=== PATIENT | male | born 1955 | race Caucasian/White ===

== ENCOUNTER 2016-09-12 19:34 | Inpatient (IN) | payer OTHER, MEDICARE ==
[2016-09-12 19:34] VITALS: BMI 32.9
[2016-09-12 20:24] LABS: ADD MANUAL DIFF? NO
[2016-09-12 20:28] LABS: BASO # 0.02 K/mm3 (0.0-2.0); BASO % 0.4 % (0.0-3.0); EOS % 0.6 % (1.5-5.0); GRAN # 3.73 (1.4-6.5); GRAN % 73.5 % (50.0-68.0); HEMATOCRIT 36.1 % (42.0-52.0); LYMPH # 0.8 (1.2-3.4); MEAN CELL VOLUME 75.8 fL (80.0-105.0); MEAN CORPUSCULAR HEMOGLOBIN 25.2 pg (25.0-35.0); MEAN CORPUSCULAR HGB CONC 33.2 g/dl (31.0-37.0); MEAN PLATELET VOLUME 9.9 fl (7.0-11.0); MONO # 0.5 (0.1-0.6); MONO % 9.5 % (1.0-6.0); PLATELET COUNT 175 10^3/uL (120.0-450.0); RED CELL DISTRIBUTION WIDTH 14.6 % (11.5-14.5); WHITE BLOOD COUNT 5.1 10^3/ul (4.5-11.0)
[2016-09-12 20:37] LABS: ALB/GLOB RATIO 1.1 (1.1-1.8); ALKALINE PHOSPHATASE 84 U/L (38-133); ALT/SGPT 48 U/L (7-56); AST/SGOT 65 U/L (15-59); BILIRUBIN,TOTAL 1.2 mg/dL (0.2-1.3); BLOOD UREA NITROGEN 19 mg/dL (7-21); CALCIUM 8.9 mg/dL (8.4-10.5); CARBON DIOXIDE 28 mmol/L (21-33); CHLORIDE 98 mmol/L (98-107); GFR AFRICAN-AMERICAN > 60; GLUCOSE,RANDOM 183 mg/dL (70-110); POTASSIUM 3.6 mmol/L (3.6-5.0); SODIUM 134 mmol/L (132-148); TOTAL PROTEIN 7.1 g/dL (5.8-8.3)
[2016-09-12 20:48] LABS: TROPONIN I 0.04 ng/mL
--- NOTE | 2016-09-12 21:03 | ED PDOC ---
Arrival/HPI - General Chief Complaint: Pacemaker Problem Time Seen by Provider: 09/12/16 19:37 Historian: Patient - History of Present Illness Narrative History of Present Illness (Text): 09/12/16 20:00 Randy Abdullahi is a 61 year old male, whose past medical history includes CAD , hypertension, and pacemaker/defibrillator, who presents to the Emergency department complaining of low-grade fever. Patient states he had a low-grade fever today and notes earlier today he was shocked by his defibrillator tonight. Patient denies any chills, chest pain, shortness of breath, nausea, vomiting, diarrhea, urinary symptoms, back pain, neck pain, headache, dizziness , or any other complaints. PMD: Dr. Meggan Rosa Time/Duration: Other (today) Symptom Onset: Gradual Symptom Course: Unchanged Activities at Onset: Rest, Light Context: Home Past Medical History - Provider Review Nursing Documentation Reviewed: Yes - Cardiac Hx Cardiac Disorders: Yes Hx Hypertension: Yes Hx Pacemaker: Yes (defibrillator) - Pulmonary Hx Respiratory Disorders: No - Neurological Hx Neurological Disorder: No - HEENT Hx HEENT Disorder: No - Renal Hx Renal Disorder: No - Endocrine/Metabolic Hx Endocrine Disorders: Yes Hx Diabetes Mellitus Type 2: Yes - Hematological/Oncological Hx Blood Disorders: No - Integumentary Hx Dermatological Disorder: No - Musculoskeletal/Rheumatological Hx Musculoskeletal Disorders: No - Gastrointestinal Hx Gastrointestinal Disorders: No - Genitourinary/Gynecological Hx Genitourinary Disorders: No - Psychiatric Hx Emotional Abuse: No Hx Physical Abuse: No Hx Substance Use: No - Surgical History Hx Coronary Artery Bypass Graft: Yes (in 1995) Other/Comment: stents in legs bilaterally - Anesthesia Hx Anesthesia Reactions: No Hx Malignant Hyperthermia: No - Suicidal Assessment Feels Threatened In Home Enviroment: No Family/Social History - Physician Review Nursing Documentation Reviewed: Yes Family/Social History: No Known Family HX Smoking Status: Former Smoker Hx Alcohol Use: Yes (SOCIALLY) Hx Substance Use: No Allergies/Home Meds Allergies/Adverse Reactions: Allergies No Known Allergies Allergy (Verified 03/29/13 11:47) Home Medications: Home Meds Medication Instructions Recorded Confirmed Aspirin [Ecotrin] 81 mg PO DAILY 09/12/16 09/12/16 Carvedilol [Coreg CR] 40 mg PO DAILY 09/12/16 09/12/16 Cilostazol [Pletal] 100 mg PO BID 09/12/16 09/12/16 Enalapril Maleate [Vasotec] 5 mg PO DAILY 09/12/16 09/12/16 Ezetimibe/Simvastatin [Vytorin 10 1 tab PO DAILY 09/12/16 09/12/16 mg-20 mg] Furosemide [Lasix] 40 mg PO DAILY 09/12/16 09/12/16 Glimepiride [amaRYL] 2 mg PO DAILY 09/12/16 09/12/16 Sitagliptin Phos/Metformin HCl 1 each PO BID 09/12/16 09/12/16 [Janumet 50-1,000 mg Tablet] Spironolactone [Aldactone] 25 mg PO DAILY 09/12/16 09/12/16 Review of Systems - Physician Review All systems were reviewed & negative as marked: Yes - Review of Systems Constitutional: Fevers Eyes: Normal ENT: Normal Respiratory: Normal. absent: SOB, Cough Gastrointestinal: Normal. absent: Abdominal Pain, Diarrhea, Nausea, Vomiting Genitourinary Male: Normal. absent: Dysuria, Frequency, Hematuria, Urinary Output Changes Musculoskeletal: Normal. absent: Back Pain, Neck Pain Skin: Normal. absent: Rash Neurological: Normal. absent: Headache, Dizziness Endocrine: Normal Hemo/Lymphatic: Normal Psychiatric: Normal Physical Exam Vital Signs Reviewed: Yes Vital Signs Temp Pulse Resp BP Pulse Ox 09/12/16 22:02 99.2 F 85 14 113/73 97 09/12/16 19:41 100.4 F H 96 H 16 123/61 95 09/14/00 19:30 67 21 121/74 100 09/14/00 19:15 70 34 H 117/73 100 09/14/00 19:00 73 37 H 117/73 100 09/14/00 18:46 72 26 H 108/62 100 09/14/00 18:30 76 104/77 100 09/14/00 18:15 66 21 110/60 99 09/14/00 18:00 75 23 99/65 L 100 09/14/00 17:45 70 11 L 114/76 100 09/14/00 17:30 77 33 H 119/83 99 09/14/00 17:15 79 31 H 115/91 H 100 09/14/00 17:02 73 14 110/62 100 09/14/00 17:00 72 03/20/01 16:46 75 18 151/71 H 100 09/14/00 16:30 68 30 H 132/112 H 100 09/14/00 16:15 71 36 H 115/65 100 09/14/00 16:00 68 34 H 113/67 100 09/14/00 15:45 74 19 108/65 94 L 09/14/00 15:30 67 22 124/81 100 09/14/00 15:15 73 19 138/81 100 09/14/00 15:00 69 38 H 112/69 97 09/14/00 14:45 68 33 H 103/66 96 09/14/00 14:30 66 31 H 105/64 96 09/14/00 14:15 69 36 H 101/57 L 97 09/14/00 14:07 68 37 H 92/62 L 95 09/14/00 14:03 71 28 H 09/14/00 12:00 104/72 09/14/00 11:59 71 39 H 100 09/14/00 11:00 70 40 H 107/65 99 09/14/00 10:00 70 35 H 127/80 99 09/14/00 09:39 76 38 H 108/68 100 09/14/00 09:00 77 25 H 99 09/14/00 08:16 72 126/46 L 99 09/14/00 08:14 100 09/14/00 07:00 67 27 H 111/68 99 09/14/00 06:00 66 22 120/76 99 09/14/00 05:00 73 30 H 102/63 98 09/14/00 04:00 66 23 123/69 99 09/14/00 03:00 71 37 H 108/71 98 09/14/00 02:00 68 24 104/74 99 09/14/00 01:00 69 23 116/72 98 09/14/00 00:00 73 29 H 108/61 98 09/13/00 23:00 71 29 H 120/77 99 09/13/00 22:00 81 42 H 116/64 98 09/13/00 21:01 83 41 H 108/77 98 09/13/00 21:00 83 46 H 98 09/13/00 20:00 78 34 H 126/73 98 09/13/00 19:00 81 41 H 109/60 99 09/13/00 18:56 82 40 H 97 09/13/00 18:00 81 41 H 116/56 L 98 09/13/00 17:41 79 38 H 97 Temperature: Febrile Blood Pressure: Normal Pulse: Regular Respiratory Rate: Normal Appearance: Positive for: Well-Appearing, Non-Toxic, Comfortable Pain Distress: None Mental Status: Positive for: Alert and Oriented X 3 - Systems Exam Head: Present: Atraumatic, Normocephalic Pupils: Present: PERRL Extroacular Muscles: Present: EOMI Conjunctiva: Present: Normal Mouth: Present: Moist Mucous Membranes Neck: Present: Normal Range of Motion Respiratory/Chest: Present: Clear to Auscultation, Good Air Exchange. No: Respiratory Distress, Accessory Muscle Use Cardiovascular: Present: Regular Rate and Rhythm, Normal S1, S2. No: Murmurs Abdomen: Present: Normal Bowel Sounds. No: Tenderness, Distention, Peritoneal Signs Back: Present: Normal Inspection Upper Extremity: Present: Normal Inspection. No: Cyanosis, Edema Lower Extremity: Present: Normal Inspection. No: Edema Neurological: Present: GCS=15, CN II-XII Intact, Speech Normal Skin: Present: Warm, Dry, Normal Color. No: Rashes Psychiatric: Present: Alert, Oriented x 3, Normal Insight, Normal Concentration Medical Decision Making ED Course and Treatment: 09/12/16 20:00 Impression: 61 year old male complaining of low-grade fever. Pt notes he was shocked by his defibrillator today. Plan: -- EKG -- Chest X-ray -- Labs, troponin, VBG, blood cultures -- Urinalysis, urine cultures -- Reassess and disposition Progress Notes: Reviewed EKG, 100% paced rhythm at 94 bpm. No acute ischemia. 09/12/16 21:32 Reviewed radiology, Chest X-ray shows cardiomegaly. 09/12/16 22:[address] Rosa, who is aware and agrees with plan. Accepts pt in to his service. Pt will go to Telemetry observation for ventricular arrhythmia and chest pain. Pt is no acute distress. Discussed results and plan with pt, who is aware and verbalizes understanding. - Lab Interpretations Microbiology Results: Microbiology Results 09/12/16 21:00 Blood-Venous Blood Culture - Preliminary NO GROWTH AFTER 4 DAYS 09/12/16 20:00 Blood-Venous Blood Culture - Preliminary NO GROWTH AFTER 4 DAYS 09/13/16 18:20 Sputum Gram Stain - Final 09/13/16 18:20 Sputum Sputum Culture - Final NORMAL ORAL JEAN PIERRE 09/13/16 17:30 Naris MRSA Culture (Admit) - Final MRSA NOT DETECTED 09/12/16 20:25 Urine,Clean Catch Urine Culture - Final No Growth (<1,000 CFU/ML) Lab Results: 09/14/16 05:05 09/14/16 05:05 Lab Results 09/14/16 07:50: POC Glucose (mg/dL) 108 09/14/16 05:05: WBC 6.3 D, RBC 4.70, Hgb 11.5 L, Hct 35.9 L, MCV 76.4 L, MCH 24.5 L, MCHC 32.0, RDW 15.3 H, Plt Count 169, MPV 10.5, Gran % 51.4, Lymph % ( Auto) 34.1, Gentry % (Auto) 14.3 H, Eos % (Auto) 0.0 L, Baso % (Auto) 0.2, Gran # 3.24, Lymph # 2.2, Gentry # 0.9 H, Eos # 0.0, Baso # 0.01, Sodium 135, Potassium 4.2, Chloride 99, Carbon Dioxide 25, Anion Gap 15, BUN 13, Creatinine 0.7, Est GFR ( Amer) > 60, Est GFR (Non-Af Amer) > 60, Random Glucose 112 H, Calcium 8.5, Phosphorus 3.5, Magnesium 2.1, Iron 24 L, TIBC 269, % Saturation 9 L, Transferrin 199.45 L, Ferritin 184.0, Total Bilirubin 0.8, AST 38, ALT 34, Alkaline Phosphatase 66, Troponin I 0.04, Total Protein 6.9, Albumin 3.5, Globulin 3.4, Albumin/Globulin Ratio 1.0 L 09/13/16 23:49: Troponin I 0.04 09/13/16 21:25: POC Glucose (mg/dL) 163 H 09/13/16 17:35: Troponin I 0.04 D 09/13/16 16:19: POC Glucose (mg/dL) 92 09/13/16 13:00: Procalcitonin 0.16 L, HIV-1 Antibody TEST NOT PERFORMED, HIV-2 Antibody TEST NOT PERFORMED, HIV 1&2 Ag/Ab, 4th Gen Nonreactive 09/13/16 11:40: Magnesium 1.9, Troponin I 0.03 D 09/13/16 11:22: POC Glucose (mg/dL) 202 H 09/13/16 07:31: POC Glucose (mg/dL) 128 H 09/12/16 20:55: Influenza Typ A,B (EIA) Negative for flu a/b 09/12/16 20:25: Urine Color Yellow, Urine Appearance Sl cloudy, Urine pH 6.0, Ur Specific Hay[place] 1.025, Urine Protein 30 H, Urine Glucose (UA) 250 H, Urine Ketones Trace H, Urine Blood Trace-lysed H, Urine Nitrate Negative, Urine Bilirubin Small H, Urine Urobilinogen 4.0 H, Ur Leukocyte Esterase Negative, Urine RBC 1 - 3, Urine WBC 1 - 3, Ur Epithelial Cells 3 - 4, Urine Bacteria Few 09/12/16 20:10: WBC 5.1, RBC 4.76, Hgb 12.0 L, Hct 36.1 L, MCV 75.8 L, MCH 25.2 , MCHC 33.2, RDW 14.6 H, Plt Count 175, MPV 9.9, Gran % 73.5 H, Lymph % (Auto) 16.0 L, Gentry % (Auto) 9.5 H, Eos % (Auto) 0.6 L, Baso % (Auto) 0.4, Gran # 3.73 , Lymph # 0.8 L, Gentry # 0.5, Eos # 0.0, Baso # 0.02, pO2 68 H, VBG pH 7.40, VBG pCO2 42.0, VBG HCO3 26.0, VBG Total CO2 27.3, VBG O2 Sat (Calc) 96.2 H, VBG Base Excess 1.0, VBG Potassium 3.5 L, Glucose 189 H, Lactate 1.1, FiO2 21.0, Sodium 134.0, Potassium 3.6, Chloride 105.0, Carbon Dioxide 28, Anion Gap 12, BUN 19, Creatinine 0.8, Est GFR ( Amer) > 60, Est GFR (Non-Af Amer) > 60 , Random Glucose 183 H, Calcium 8.9, Total Bilirubin 1.2, AST 65 H, ALT 48, Alkaline Phosphatase 84, Troponin I 0.04, Total Protein 7.1, Albumin 3.7, Globulin 3.4, Albumin/Globulin Ratio 1.1, Venous Blood Potassium 3.5 L I have reviewed the lab results: Yes - RAD Interpretation Narrative RAD Interpretations (Text): Chest X-ray shows cardiomegaly. Radiology Orders: 09/12/16 20:04 CHEST PORTABLE [RAD] Stat 09/13/16 12:20 CHEST W/O CONTRAST [CT] Routine [employer]: ED Physician - EKG Interpretation EKG Interpretation (Text): EKG: Ordered, reviewed, and independently interpreted the EKG. Rate : 94 BPM Rhythm : 100% paced rhythm Interpretation : No acute ischemia. Interpreted by ED Physician: Yes Type: 12 lead EKG - Medication Orders Current Medication Orders: Acetaminophen (Tylenol 325mg Tab) 650 mg PO Q4H PRN PRN Reason: Fever >100.5 F Last Admin: 09/13/16 15:06 Dose: 650 MG MAR Pain/Vitals Document 09/13/16 15:06 [facility] (Rec: 09/13/16 15:07 [id number]) Vitals Temperature (97.6 F-99.6 F) 100.7 F Albuterol/Ipratropium (Duoneb 3 Mg/0.5 Mg (3 Ml) Ud) 3 ml IH [id number] [facility] Last Admin: 09/17/16 01:13 Dose: 3 ML Amiodarone HCl (Cordarone) 200 mg PO DAILY [facility] Aspirin (Ecotrin) 81 mg PO DAILY [facility] Last Admin: 09/16/16 09:32 Dose: 81 MG Atorvastatin Calcium (Lipitor) 10 mg PO DIN [facility] Last Admin: 09/16/16 17:02 Dose: 10 MG Digoxin (Lanoxin) 0.25 mg PO 1400 [facility] Last Admin: 09/16/16 16:53 Dose: Not Given Non-Admin Reason: Patient Refused [facility] Apical Pulse Rate Document 09/16/16 16:53 RT (Rec: 09/16/16 16:53 RT [id number]) Apical Pulse Rate Apical Pulse Rate (60-90 beats/min) 62 Doxycycline Hyclate (Doryx) 100 mg PO Q12 [facility] PRN Reason: Protocol Stop: 09/22/16 22:01 Last Admin: 09/16/16 23:14 Dose: 100 MG Furosemide (Lasix) 40 mg PO DAILY [facility] Last Admin: 09/16/16 09:33 Dose: 40 MG MAR Blood Pressure Document 09/16/16 09:33 RT (Rec: 09/16/16 09:33 RT [id number]) Blood Pressure Blood Pressure (100/60-150/90) 142/68 Guaifenesin (Robitussin) 100 mg PO Q4H PRN PRN Reason: Cough Last Admin: 09/16/16 23:14 Dose: 100 MG Home Med (Home Med) 1 unit PO DAILY [facility] Last Admin: 09/16/16 09:34 Dose: 1 UNIT Insulin Human Lispro (Humalog Low) 0 units SC [facility] PRN Reason: Protocol Last Admin: 09/16/16 23:12 Dose: Not Given Non-Admin Reason: Blood Sugar Parameter [facility] Blood Glucose Document 09/16/16 23:12 SBO (Rec: 09/16/16 23:12 SBO [id number]) Blood Glucose Finger Stick Blood Glucose (70-120) 200 Lisinopril (Zestril) 5 mg PO DAILY [facility] Last Admin: 09/16/16 09:33 Dose: 5 MG Magnesium Chloride (Slow-Mag) 64 mg PO DAILY [facility] Last Admin: 09/16/16 09:32 Dose: 64 MG Oseltamivir Phosphate (Tamiflu Cap) 75 mg PO BID [facility] PRN Reason: Protocol Stop: 09/18/16 18:01 Last Admin: 09/16/16 17:02 Dose: 75 MG Pantoprazole Sodium (Protonix Ec Tab) 20 mg PO 0730 [facility] Last Admin: 09/16/16 08:06 Dose: 20 MG Prednisone (Prednisone Tab) 20 mg PO DAILY [facility] Last Admin: 09/16/16 09:32 Dose: 20 MG Spironolactone (Aldactone) 25 mg PO DAILY [facility] Last Admin: 09/16/16 09:33 Dose: 25 MG Discontinued Medications Amiodarone HCl (Cordarone) 200 mg PO Q8 [facility] Last Admin: 09/14/16 07:42 Dose: 200 MG MAR Pulse and Blood Pressure Document 09/14/16 07:42 ORLIN (Rec: 09/14/16 07:42 ORLIN [id number]) Pulse Pulse Rate (60-90) 74 Blood Pressure Blood Pressure (100/60-150/90) 111/64 Amiodarone HCl (Cordarone) 400 mg PO TID JAMAAL Stop: 09/16/16 23:59 Last Admin: 09/16/16 17:02 Dose: 400 MG MAR Pulse and Blood Pressure Document 09/16/16 17:02 RT (Rec: 09/16/16 17:02 RT [id number]) Pulse Pulse Rate (60-90) 62 Bacitracin (Bacitracin) 1 ea TOP ONCE ONE Stop: 09/14/16 14:03 Last Admin: 09/14/16 17:49 Dose: 1 EA Bacitracin (Bacitracin) Confirm Administered Dose 1 ea .ROUTE .STK-MED ONE Stop: 09/14/16 16:55 Last Admin: 09/14/16 18:10 Dose: Clopidogrel Bisulfate (Plavix) 300 mg PO STAT STA Stop: 09/14/16 09:13 Last Admin: 09/14/16 09:44 Dose: 300 MG Diphenhydramine HCl (Benadryl) 25 mg PO STAT STA Stop: 09/12/16 23:36 Last Admin: 09/12/16 23:49 Dose: 25 MG Ezetimibe (Zetia) 10 mg PO DAILY JAMAAL Last Admin: 09/13/16 09:49 Dose: 10 MG Fentanyl (Fentanyl) Confirm Administered Dose 100 mcg .ROUTE .STK-MED ONE Stop: 09/14/16 12:30 Last Admin: 09/14/16 13:15 Dose: 50 MCG Comments: Dr. Kamran Nguyen adm. Fenatanyl 50 mcg IV @ 1315 MAR Pain Assessment Document 09/14/16 13:15 KPA (Rec: 09/14/16 13:40 KPA [id number]) Pain Reassessment Is this a pain reassessment? No Sleep Is patient sleeping during reassessment? No Presence of Pain Presence of Pain Yes Furosemide (Lasix) 40 mg IV ONCE ONE Stop: 09/14/16 16:01 Last Admin: 09/14/16 18:12 Dose: Furosemide (Lasix) 40 mg IV ONCE ONE Stop: 09/15/16 17:01 Last Admin: 09/15/16 18:05 Dose: 40 MG MAR Blood Pressure Document 09/15/16 18:05 SG (Rec: 09/15/16 18:06 SG [id number]) Blood Pressure Blood Pressure (100/60-150/90) 117/69 eMAR Start Stop Document 09/15/16 18:05 SG (Rec: 09/15/16 18:06 SG [id number]) Intravenous Solution Start Date 09/15/16 Start Time 18:06 End Date 09/15/16 End time 18:08 Total Infusion Time 2 Glimepiride (Amaryl) 2 mg PO DAILY [facility] Last Admin: 09/13/16 09:48 Dose: 2 MG Heparin Sodium (Porcine) (Heparin) 5,000 units SC Q12 JAMAAL Last Admin: 09/13/16 21:22 Dose: 5,000 UNITS Subcutaneous Administrations Document 09/13/16 21:22 LILIBETH (Rec: 09/13/16 21:22 LILIBETH [id number]) Injection Site MAR Injection Site Right Abdomen Charges for Administration # of Subcutaneous Administrations 1 Heparin Sodium (Porcine) (Heparin) Confirm Administered Dose 10,000 units .ROUTE .STK-MED ONE Stop: 09/14/16 12:29 Last Admin: 09/14/16 13:20 Dose: 2,500 UNITS Comments: Dr. Kamran Nguyen adm. Heparin 2500 units IA @ 1320 Home Med (Home Med) 1 unit PO ONCE ONE Stop: 09/13/16 14:31 Last Admin: 09/13/16 14:20 Dose: 1 UNIT Levofloxacin/Dextrose (Levaquin 500mg) 100 mls @ 100 mls/hr IVPB STAT STA Stop: 09/12/16 23:03 Last Admin: 09/12/16 22:29 Dose: 100 MLS/HR eMAR Start Stop Document 09/12/16 22:29 RD (Rec: 09/12/16 22:29 RD [id number]) Intravenous Solution Start Date 09/12/16 Start Time 22:29 End Date 09/12/16 End time 23:29 Total Infusion Time 60 Levofloxacin/Dextrose (Levaquin 750mg) 150 mls @ 100 mls/hr IVPB DAILY JAMAAL Last Admin: 09/13/16 09:50 Dose: 100 MLS/HR eMAR Start Stop Document 09/13/16 09:50 FJA (Rec: 09/13/16 09:50 FJA [id number]) Intravenous Solution Start Date 09/13/16 Start Time 09:50 End Date 09/13/16 End time 10:50 Total Infusion Time 60 Ceftriaxone Sodium (Rocephin 1 Gram Ivpb) 100 mls @ 100 mls/hr IVPB DAILY JAMAAL PRN Reason: Protocol Stop: 09/22/16 12:19 Last Admin: 09/16/16 09:35 Dose: 100 MLS/HR eMAR Start Stop Document 09/16/16 09:35 RT (Rec: 09/16/16 09:35 RT [id number]) Intravenous Solution Start Date 09/16/16 Start Time 09:35 End Date 09/16/16 End time 10:35 Total Infusion Time 60 Vancomycin HCl (Vancomycin 1gm) 250 mls @ 167 mls/hr IVPB Q12H JAMAAL PRN Reason: Protocol Stop: 09/22/16 12:31 Last Admin: 09/13/16 23:29 Dose: 167 MLS/HR eMAR Start Stop Document 09/13/16 23:29 LILIBETH (Rec: 09/13/16 23:30 LILIBETH [id number]) Intravenous Solution Start Date 09/13/16 Start Time 23:29 End Date 09/13/16 Magnesium Sulfate 2 gm/ Sodium (Chloride) 104 mls @ 102 mls/hr IVPB ONCE ONE Stop: 09/13/16 15:32 Last Admin: 09/13/16 16:42 Dose: 102 MLS/HR eMAR Start Stop Document 09/13/16 16:42 FJA (Rec: 09/13/16 16:43 FJA [id number]) Intravenous Solution Start Date 09/13/16 Start Time 16:43 End Date 09/13/16 End time 18:00 Total Infusion Time 77 Amiodarone HCl/Dextrose (Nexterone 360 Mg In D5w 200 Ml (Premix)) 200 mls @ 33.333 mls/hr IV .Q6H JAMAAL; 1 MG/MIN PRN Reason: Protocol Last Admin: 09/13/16 18:19 Dose: 33.333 MLS/HR MAR Pulse and Blood Pressure Document 09/13/16 18:19 RAMOM (Rec: 09/13/16 18:28 RAMOM [id number]) Pulse Pulse Rate (60-90) 83 Blood Pressure Blood Pressure (100/60-150/90) 116/56 eMAR Start Stop Document 09/13/16 18:19 RAMOM (Rec: 09/13/16 18:28 RAMOM [id number]) Intravenous Solution Start Date 09/13/16 Start Time 18:20 Amiodarone HCl/Dextrose (Nexterone 150 Mg In Dextrose 100 Ml (Premix)) 100 mls @ 600 mls/hr IVPB ONCE ONE PRN Reason: Protocol Stop: 09/13/16 18:01 Last Admin: 09/13/16 18:04 Dose: 600 MLS/HR eMAR Start Stop Document 09/13/16 18:04 RAMOM (Rec: 09/13/16 18:05 RAMOM [id number]) Intravenous Solution Start Date 09/13/16 Start Time 18:05 End Date 09/13/16 End time 18:15 Total Infusion Time 10 Amiodarone HCl/Dextrose (Nexterone 360 Mg In D5w 200 Ml (Premix)) 200 mls @ 16.667 mls/hr IV .Q12H JAMAAL; 0.5 MG/MIN PRN Reason: Protocol Stop: 09/14/16 18:00 Last Admin: 09/13/16 23:18 Dose: 16.667 MLS/HR MAR Pulse and Blood Pressure Document 09/13/16 23:18 LILIBETH (Rec: 09/13/16 23:23 LILIBETH [id number]) Pulse Pulse Rate (60-90) 77 Blood Pressure Blood Pressure (100/60-150/90) 120/77 eMAR Start Stop Document 09/13/16 23:18 LILIBETH (Rec: 09/13/16 23:23 LILIBETH [id number]) Intravenous Solution Start Date 09/13/16 Start Time 23:22 Nitroglycerin/Dextrose (Nitroglycerin 50 Mg/250 Ml D5w) Confirm Administered Dose 250 mls @ ud IV .STK-MED ONE Stop: 09/14/16 12:31 Last Admin: 09/14/16 13:20 Dose: 0.2 MG Comments: Dr. Patrick fermin Nitro 200 mcg IA @ 1320 eMAR Start Stop Document 09/14/16 13:20 KPA (Rec: 09/14/16 13:38 KPA [id number]) Intravenous Solution Start Date 09/14/16 Start Time 13:20 End Date 09/14/16 End time 13:20 Total Infusion Time 0 Heparin Sodium (Porcine) (Heparin 1000 Units/500 Ml Ns) Confirm Administered Dose 1,500 mls @ ud IV .STK-MED ONE Stop: 09/14/16 12:31 Sodium Chloride (Sodium Chloride 0.9%) 1,000 mls @ 50 mls/hr IV .Q20H JAMAAL Stop: 09/14/16 17:00 Milrinone Lactate/Dextrose (Primacor 20mg/100ml D5w) 100 mls @ 4.983 mls/hr IV .Q20H5M PRN; Protocol; 0.2 MCG/KG/MIN PRN Reason: TITRATE PER MD ORDER Stop: 09/16/16 07:00 Last Admin: 09/15/16 18:10 Dose: 4.9 MLS/HR MAR Vitals Document 09/15/16 18:10 SG (Rec: 09/15/16 18:11 SG [id number]) Measurements Blood Pressure (100/60-150/90) 117/69 Titration Intervention Document 09/15/16 18:10 SG (Rec: 09/15/16 18:11 [id number]) Titration Intake Container Volume 100 Titration Dosing Titration Dose 0.19 IV Rate 4.9 Intake/Decrease Decrease eMAR Start Stop Document 09/15/16 18:10 SG (Rec: 09/15/16 18:11 [id number]) Intravenous Solution Start Date 09/15/16 Start Time 18:10 Insulin Human Regular (Humulin R Low) 0 units SC ACHS [facility] PRN Reason: Protocol Last Admin: 09/13/16 16:42 Dose: Not Given Non-Admin Reason: Blood Sugar Parameter [facility] Blood Glucose Document 09/13/16 16:42 [facility] (Rec: 09/13/16 16:42 [id number]) Blood Glucose Finger Stick Blood Glucose (70-120) 92 Iodixanol (Visipaque 320 Mg/Ml 200 Ml) Confirm Administered Dose 200 ml IV .STK- MED ONE Stop: 09/14/16 12:31 Lidocaine HCl (Lidocaine 2% 20ml Vial) Confirm Administered Dose 20 ml .ROUTE .STK-MED ONE Stop: 09/14/16 12:29 Metformin HCl (Glucophage) 1,000 mg PO BID [facility] Last Admin: 09/13/16 09:49 Dose: 1,000 MG Midazolam HCl (Versed Inj) Confirm Administered Dose 2 mg .ROUTE .STK-MED ONE Stop: 09/14/16 12:29 Last Admin: 09/14/16 13:15 Dose: 1 MG Comments: Dr. Kamran Nguyen adm. Versed 1 mg IV @ 1315 Non-Formulary Medication (Carvedilol [Coreg Cr]) 40 mg PO DAILY [facility] Last Admin: 09/13/16 11:09 Dose: Ondansetron HCl (Zofran Inj) 4 mg IVP ONCE ONE Stop: 09/13/16 19:34 Last Admin: 09/13/16 20:37 Dose: 4 MG IVP Administration Document 09/13/16 20:37 LILIBETH (Rec: 09/13/16 20:38 LILIBETH [id number]) Charges for Administration # of IVP Administrations 1 Ondansetron HCl (Zofran Inj) 4 mg IVP ONCE ONE Stop: 09/14/16 23:10 Last Admin: 09/14/16 23:26 Dose: 4 MG IVP Administration Document 09/14/16 23:26 MS (Rec: 09/14/16 23:26 [id number] Charges for Administration # of IVP Administrations 1 Potassium Chloride (K-Dur 20 Meq Er Tab) 20 meq PO ONCE ONE Stop: 09/13/16 13:08 Last Admin: 09/13/16 13:30 Dose: 20 MEQ Potassium Chloride (K-Dur 20 Meq Er Tab) 20 meq PO ONCE ONE Stop: 09/15/16 17:01 Last Admin: 09/15/16 18:05 Dose: 20 MEQ Sitagliptin Phosphate (Januvia) 50 mg PO BID [facility] Last Admin: 09/13/16 09:49 Dose: 50 MG Verapamil HCl (Verapamil Inj) Confirm Administered Dose 5 mg IVP .STK-MED ONE Stop: 09/14/16 12:29 Last Admin: 09/14/16 13:20 Dose: 2.5 MG Comments: Dr. Kamran Nguyen adm. Verapamil 2.5 mg IA @ 1320 MAR Pulse and Blood Pressure Document 09/14/16 13:20 KPA (Rec: 09/14/16 13:39 KPA [id number]) Pulse Pulse Rate (60-90) 87 Blood Pressure Blood Pressure (100/60-150/90) 124/67 IVP Administration Document 09/14/16 13:20 KPA (Rec: 09/14/16 13:39 KPA [id number]) Charges for Administration # of IVP Administrations 1 - Scribe Statement The provider has reviewed the documentation as recorded by the Prateekibgeovanny Menjivar Provider Attestation: All medical record entries made by the Scribe were at my direction and personally dictated by me. I have reviewed the chart and agree that the record accurately reflects my personal performance of the history, physical exam, medical decision making, and the department course for this patient. I have also personally directed, reviewed, and agree with the discharge instructions and disposition. Disposition/Present on Arrival - Present on Arrival Any Indicators Present on Arrival: No History of DVT/PE: No History of Uncontrolled Diabetes: No Urinary Catheter: No History of Decub. Ulcer: No History Surgical Site Infection Following: None - Disposition Have Diagnosis and Disposition been Completed?: Yes Diagnosis: Cardiac arrhythmia Disposition: HOSPITALIZED Disposition Time: 22:05 Condition: FAIR
[2016-09-12 21:18] LABS: URINE BILIRUBIN SMALL (NEGATIVE); URINE BLOOD TRACE-LYSED (NEGATIVE); URINE GLUCOSE (UA) 250 mg/dL (NEGATIVE); URINE KETONE TRACE mg/dL (NEGATIVE); URINE LEUKOCYTE ESTERASE NEGATIVE Leu/uL (NEGATIVE); URINE PROTEIN 30 mg/dL (<30 mg/dL)
[2016-09-12 21:20] LABS: URINE COLOR YELLOW (YELLOW)
[2016-09-12 21:21] LABS: URINE APPEARANCE SL CLOUDY (CLEAR)
[2016-09-12 21:30] LABS: URINE BACTERIA FEW (NEG)
[2016-09-13] MEDS: Insulin Reg-LOW-Coverage SC SCH ×3 (08:15→16:42)
--- NOTE | 2016-09-13 09:17 | RAD ---
HISTORY: cp COMPARISON: Chest x-ray performed 09/12/16 TECHNIQUE: Chest, one view. FINDINGS: LUNGS: Central vascular and pulmonary venous congestion. Please note that chest x-ray has limited sensitivity for the detection of pulmonary masses. PLEURA: No significant pleural effusion identified. No definite pneumothorax . 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 Cardiomegaly. Left-sided AICD. OSSEOUS STRUCTURES: Osseous demineralization. Degenerative changes. 5 mm sclerotic focus within the proximal right humerus, possibly bone island. VISUALIZED UPPER ABDOMEN: Unremarkable. OTHER FINDINGS: None. IMPRESSION: Cardiomegaly. Central vascular and pulmonary venous congestion.
--- NOTE | 2016-09-13 09:56 | CARD ---
APPROVED REPORT EKG Measurement Heart [id number] <Conclusion> Electronic ventricular pacemaker: 100% V. paced, trackinf P waves
[2016-09-13] MEDS ORDERED: Non Formulary Medication (Enalapril Maleate [Vasotec] 5 MG) PO SCH (10:00)
[2016-09-13] MEDS ORDERED: Non Formulary Medication (Sitagliptin Phos/Metformin Hcl [Janumet 50-1,000 Mg Tablet] 1 EA PO SCH (10:00)
[2016-09-13] MEDS ORDERED: Non Formulary Medication (Ezetimibe/Simvastatin [Vytorin 10-20 Mg Tablet] 1 TAB) PO SCH (10:00)
[2016-09-13] MEDS ORDERED: Non Formulary Medication (Carvedilol [Coreg Cr] 40 MG) PO SCH ×2 (10:00)
[2016-09-13 12:08] LABS: MAGNESIUM 1.9 mg/dL (1.7-2.2)
[2016-09-13] MEDS ORDERED: CARVEDILOL 40 MG PO SCH (12:16)
[2016-09-13 12:19] LABS: TROPONIN I 0.03 ng/mL
--- NOTE | 2016-09-13 12:33 | HP ---
A 61-year-old male with history of noninsulin-dependent diabetes mellitus, hypertension, CAD , status post defibrillator pacemaker. The patient had begun coughing for 3 days with low-grade feve r and chills without sputum production. Last night, his defibrillator went off. He came to the [facility] and was found to have a possible pneumonia with a temperature of 102. Influenza A and B n egative. The patient was admitted with pneumonia and defibrillator discharge, rule out CAD. Again, this morning, the patient had another discharge of his defibrillator. PHYSICAL EXAMINATION: GENERAL: Awake, alert, and oriented x 3. NEUROLOGIC: Grossly intact. CHEST: Shows rhonchi and rales at both bases, particularly right lower lobe. HEART: Regular sinus rhythm. Systolic ejection murmur at the left sternal border, II/. ABDOMEN: Obese, but benign. EXTREMITIES: Without cyanosis, clubbing, or edema. NEUROLOGIC: Grossly intact. REVIEW OF SYSTEMS: The patient's 12-point review of systems is remarkable only for abdominal pain fr om coughing, cough, low-grade fever, chills, cold hands and feet. Denies chest pain, shortness of br eath, palpitations, irregular heartbeats, etc. The patient denies nausea, vomiting, diarrhea, and he also denies anxiety, depression, sleep disturbance. The patient also denies any polyuria, polydipsi a, hematuria, etc. SOCIAL HISTORY: Noncontributory. There is no smoking and no drinking, and he has no illicit drug us e. FAMILY HISTORY: Pertinent only for stroke in his mother, diabetes, and hypertension. His history of present illness dates to 3 days when this began with dry cough, and low-grade fever, a nd congestion. The patient denies any contact with any sick family members or outside members. IMPRESSION: A 61-year-old male with history of coronary artery disease, [id number] nt diabetes mellitus, hypertension, presenting with fever, chills, cough, no sputum production, and m ultiple discharges from his defibrillator. Rule out arrhythmia, rule out electrolyte imbalance, rule out defibrillator malfunction, rule out pneumonia and bronchitis. Praneeth Rosa MD cc: [id number] TT: 09/13/2016 12:32:47 jn
[2016-09-13] MEDS ORDERED: Potassium Chloride 20 mEq ER Tab PO ONE (13:07)
--- NOTE | 2016-09-13 13:34 | CON ---
DATE: 09/13/2016 The patient is in bed in room 270. The patient was seen earlier today. CHIEF COMPLAINT: Fever times 1-2 days' duration. HISTORY OF PRESENT ILLNESS: A 61-year-old male with coronary artery disease, hypertension, diabetes, has a pacemaker that was placed in 2014 and complaining of fever. He stated he did have chills. He had generalized aches and pains. No headaches. No nausea or vomiting. No urinary symptoms, no peter rrhea. He is having cough and the cough is nonproductive. No chest pain. PAST MEDICAL HISTORY: Significant for coronary artery disease, hypertension and diabetes mellitus an d peripheral arterial disease. PAST SURGICAL HISTORY: Significant for coronary artery bypass graft in 1995 at [facility]. The patient also with a pacemaker placement, he states in 2014 and this is his second pacem carolann. The first one was in 2004, which was not infected. It is just because of the pacemaker got ol d. The patient is a longtime ex-smoker. The patient also states bilateral leg stents. ALLERGIES: He has no known allergies. MEDICATIONS: Include metformin and glyburide and a statin, Vytorin, and enalapril and carvedilol, as pirin, spironolactone, Lasix. PHYSICAL EXAMINATION: GENERAL: The patient is in bed. VITAL SIGNS: Temperature of 101.4, heart rate is 64, it was up to 96 in the Emergency Room, respirat ory rate of 18, it was up to 20, blood pressure is 120/70. HEENT: Unremarkable. NECK: Supple. LUNGS: Decreased breath sounds. HEART: Normal S1, S2. ABDOMEN: Soft, nontender. LABORATORY EXAMINATION: Reveals a white count of 5.1, hemoglobin of 12, platelets of 175, 73% granul ocytosis. Chemistries reveals the BUN of 19, creatinine of 0.8. Urinalysis is noted, 1-3 WBCs. Inf luenza A is negative. Influenza B serology is negative. Chest x-ray is reported, pulmonary congestion and cardiomegaly. EKG is noted with a QTc of 540 and v entricular pacemaker 100%. ASSESSMENT AND PLAN: A 61-year-old male with a history of diabetes and hypertension and coronary art miguel angel disease and peripheral artery disease and stents in his lower extremities and coronary artery byp ass and pacemaker, which was placed in 2014. Currently, now with a temperature of 101, tachycardia a nd cough with an unremarkable chest x-ray. Systemic inflammatory response syndrome. Must rule out community-acquired pneumonia versus bacteremi a versus influenza, although the influenza serology is negative. We will discontinue the Levaquin du e to a prolonged QTc interval and use vancomycin and ceftriaxone and doxycycline. Order a stat proca lcitonin and will also order an HIV and a sputum culture, blood cultures. We will make further recom mendations upon availability of initial results and we will also obtain a CAT scan of the chest and w e will follow closely with you. Will also add Tamiflu. Tank Dias MD cc: [id number] TT: 09/13/2016 13:33:36 Confirmation # [id number] Dictation # [id number] en
[2016-09-13] MEDS: cefTRIAXone 1 gm 100 ML IVPB SCH (14:10)
[2016-09-13] MEDS: Vancomycin 1gm in NS 250ml 250 ML IVPB SCH ×2 (14:11→23:29)
[2016-09-13] MEDS ORDERED: COREG 40 MG PO ONE (14:30)
[2016-09-13] MEDS ORDERED: Magnesium Sulfate 2 GM in Sodium Chloride 0.9% 100 ML IVPB ONE (14:31)
--- NOTE | 2016-09-13 14:35 | CON ---
DATE: 09/13/2016 REASON FOR CONSULTATION: Ventricular tachycardia and dilated cardiomyopathy. The patient is a 61-year-old male who has a history of hypertension, diabetes mellitus, rg nary artery disease status post coronary artery bypass surgery in 1995 followed by coronary stenting. The most recent one was many years ago. The patient had an ICD placement in 2004 with replacement of a pulse generator in 2014. The patient has discharges from the ICD every few months. He has been experiencing low-grade fever and cough for the past 3 days and around 6:30 p.m. yesterday, he had di scharge from defibrillator and he decided to come to the hospital. Overnight, the patient had a run of sustained ventricular tachycardia and that was terminated by an ICD discharge. The patient was aw akened up from sleep with the ICD discharge. The patient denies any symptoms of dizziness prior to h is ICD discharge yesterday at home. The patient denies any syncope. SOCIAL HISTORY: The patient is a nonsmoker. MEDICATIONS: Aldactone 25 mg once a day, Amaryl 2 mg once a day, doxycycline 100 mg orally twice a d ay, aspirin 81 mg once a day, Glucophage 1 gram twice a day, Januvia 50 mg twice a day, Lipitor 10 mg once a day, Rocephin 1 gram intravenously daily, Tamiflu caplets 75 mg twice a day, vancomycin 1 gra m intravenously twice a day, Zestril 5 mg once a day, Zetia 10 mg once a day. REVIEW OF SYSTEMS: The patient did experience fever. No chills, no nausea or vomiting, no retroster nal chest pain and no leg swelling. PHYSICAL EXAMINATION: GENERAL: The patient is a middle-aged male who does not appear to be in any distress. VITAL SIGNS: Blood pressure 123/69, heart rate 80, temperature 101 degrees Fahrenheit, respiration 2 0. HEENT: Normocephalic. NECK: No JVD. CHEST: Clear. HEART: S1, S2 regular. ABDOMEN: Soft. EXTREMITIES: No edema. LABORATORIES: Hemoglobin and hematocrit 12 and 36.1, white count and platelet count are within patrick l limits. Today's SMA-7 is within normal limits except for glucose of 183. Magnesium is 1.9. Today 's potassium is borderline low normal at 3.6. Troponin 0.04 and 0.03. EKG revealed atrial sensed biventricular paced rhythm at a rate of 94. Chest x-ray revealed cardiome maddi, mild to moderate CHF, possible left pleural effusion, and ICD lead with dual chamber biventricu lar pacemaker leads. ASSESSMENT: 1. Recurrent discharge of the implantable cardioverter-defibrillator for most likely recurrent susta ined ventricular tachycardia. 2. Cardiomyopathy, status post implantable cardioverter-defibrillator and biventricular pacemaker pl acement. 3. Borderline hypokalemia and borderline hypomagnesemia. 4. Consider underlying pneumonia. RECOMMENDATIONS: Continue Aldactone at 25 mg once a day. Continue oral doxycycline 100 mg twice a d ay, IV Rocephin at 1 gram intravenously daily, aspirin 81 mg once a day, Lipitor at 10 mg once a day. I will start Slow-Mag at 1 tablet once a day. Administer 1 dose of K-Dur at 20 mEq orally today. Continue Zestril at 5 mg once a day and start Coreg at 3.125 mg orally twice a day. Jarvis Davison MD cc: [id number] TT: 09/13/2016 14:34:56 Confirmation # [id number] Dictation # [id number] en
[2016-09-13] MEDS: Magnesium Chloride 64 mg ER Tab PO SCH (15:03)
--- NOTE | 2016-09-13 15:03 | PN ---
DATE: 09/13/2016 The patient did experience defibrillation after sustained ventricular tachycardia around 2:00 p.m. T he patient does not recall experiencing dizziness or palpitation. The patient was noted to be on Cor eg SR 40 mg once a day from home. He has not received his pill today. The patient will receive the Coreg 40 mg now and will be started on magnesium sulfate 2 mg intravenously now. Will be transferred to the ICU and will be started on amiodarone infusion. Electrophysiology consult from Dr. Rolando moreira s been requested and the case will be discussed with the hem marker. The case was already d iscussed with the clamshell operator, Dr. Oshea. Jarvis Davison MD cc: [id number] TT: 09/13/2016 15:02:39 Confirmation # [id number] Dictation # [id number] viri
[2016-09-13] MEDS ORDERED: Amiodarone 360 mg/D5W 200 ml 200 ML IV SCH ×2 (16:15→19:15)
[2016-09-13] MEDS ORDERED: Amiodarone 150 mg/D5W 100 ml 100 ML IVPB ONE (17:52)
--- NOTE | 2016-09-13 17:52 | CP.CCUPN ---
<Michael Arredondoa - Last Filed: 09/13/16 17:55> CCU Subjective - Physician Review Events Since Last Encounter (Free Text): 09/13/16 17:55 C/S: ICU eval HPI: 61 year old male with extensive cardiac history admitted with 3 day h/o nonproductive cough, chills and low-grade fever admitted with possible PNA/ bronchitis on antibiotic therapy s/p ICD shock at home on Wednesday night. Patient had 3 more episodes of his ICD firing while int hospital, once waking the patient up from sleep. Patient denies any CP, dizziness, diaphoresis, headache, fatigue, syncope or any discomfort prior to ICD firing. Only admits to a mild headache and some abdominal pain with coughing. Otherwise denies new rashes, vision changes, chills, muscle aches, palpitations. PMHx: NIDDM2, HTN, CAD, PVD PSHx: CABG 1995, PPM 2004, ICD 2014, BL leg stents, coronary stents FamilyHx: Mom had CVA, DM, HTN. Dad had TX. Bro had HLD, HTN. SocialHx: Former smoker, 1ppd x 17 years, quit in 1994. Social EtOH in his youth. Denies h/o drug use Allergies: NKDA HomeMeds: Spirinolactone, Coreg, ASA, Janumet, Lasix, Pletal, Vasotec, Vytorin, Glimepiride 09/13/16 18:22 Critical Care Time Spent (in minutes): 60 CCU Objective - Vital Signs / Intake & Output Vital Signs (Last 4 hours): Vital Signs Temp Pulse Resp 09/13/16 17:00 99 F 70 18 09/13/16 15:06 100.7 F H 09/13/16 14:00 81 Intake and Output (Last 8hrs): Intake & Output 09/13/16 09/13/16 09/13/16 06:59 14:59 22:59 Other: Voiding Method Urinal - Physical Exam Head: Positive for: Atraumatic, Normocephalic Pupils: Positive for: PERRL Extroacular Muscles: Positive for: EOMI Conjunctiva: Positive for: Normal Mouth: Positive for: Moist Mucous Membranes Neck: Positive for: Normal Range of Motion Respiratory/Chest: Positive for: Clear to Auscultation, Good Air Exchange. Negative for: Respiratory Distress, Accessory Muscle Use Cardiovascular: Positive for: Regular Rate and Rhythm, Normal S1, S2. Negative for: Murmurs Abdomen: Positive for: Normal Bowel Sounds. Negative for: Tenderness, Distention, Peritoneal Signs Back: Positive for: Normal Inspection Upper Extremity: Positive for: Normal Inspection. Negative for: Cyanosis, Edema Lower Extremity: Positive for: Normal Inspection. Negative for: Edema Neurological: Positive for: GCS=15, CN II-XII Intact, Speech Normal Skin: Positive for: Warm, Dry, Normal Color. Negative for: Rashes Psychiatric: Positive for: Alert, Oriented x 3, Normal Insight, Normal Concentration - Medications Active Medications: Active Medications Generic Name Dose Route Start Last Admin Trade Name Freq PRN Reason Stop Dose Admin Acetaminophen 650 mg 09/12/16 22:08 09/13/16 15:06 Tylenol 325mg Tab PO 650 mg Q4H PRN Administration Fever >100.5 F Amiodarone HCl 200 mg 09/14/16 06:00 Cordarone PO Q8 JAMAAL Aspirin 81 mg 09/13/16 10:00 09/13/16 09:48 Ecotrin PO 81 mg DAILY JAMAAL Administration Atorvastatin Calcium 10 mg 09/13/16 17:00 09/13/16 16:42 Lipitor PO 10 mg DIN JAMAAL Administration Doxycycline Hyclate 100 mg 09/13/16 22:00 Doryx PO 09/22/16 22:01 Q12 JAMAAL Protocol Home Med 1 unit 09/14/16 10:00 Home Med PO DAILY JAMAAL Ceftriaxone Sodium 100 mls @ 100 mls/hr 09/13/16 12:18 09/13/16 14:10 Rocephin 1 Gram Ivpb IVPB 09/22/16 12:19 100 mls/hr DAILY JAMAAL Administration Protocol Vancomycin HCl 250 mls @ 167 mls/hr 09/13/16 12:30 09/13/16 14:11 Vancomycin 1gm IVPB 09/22/16 12:31 167 mls/hr Q12H JAMAAL Administration Protocol Amiodarone HCl/Dextrose 200 mls @ 33.333 mls/hr 09/13/16 16:15 Nexterone 360 Mg In D5w 200 Ml (Premix) IV .Q6H JAMAAL Protocol 1 MG/MIN Insulin Human Lispro 0 units 09/13/16 22:00 Humalog Low SC ACHS JAMAAL Protocol Insulin Human Regular 0 units 09/13/16 07:30 09/13/16 16:42 Humulin R Low SC Not Given [facility] Protocol Lisinopril 5 mg 09/13/16 10:00 09/13/16 09:49 Zestril PO 5 mg DAILY JAMAAL Administration Magnesium Chloride 64 mg 09/13/16 13:15 09/13/16 15:03 Slow-Mag PO 64 mg DAILY [facility] Administration Oseltamivir Phosphate 75 mg 09/13/16 18:00 Tamiflu Cap PO 09/18/16 18:01 BID [facility] Protocol Spironolactone 25 mg 09/13/16 10:00 09/13/16 09:49 Aldactone PO 25 mg DAILY [facility] Administration - Patient Studies Lab Studies: Lab Studies 09/13/16 09/13/16 09/13/16 Range/Units 16:19 11:40 11:22 POC Glucose (mg/dL) 92 202 H (65-110) mg/dL Magnesium 1.9 (1.7-2.2) mg/dL Troponin I 0.03 D ng/mL 09/13/16 Range/Units 07:31 POC Glucose (mg/dL) 128 H (65-110) mg/dL Magnesium (1.7-2.2) mg/dL Troponin I ng/mL Laboratory Results - last 24 hr 09/13/16 09/13/16 09/13/16 07:31 11:22 11:40 POC Glucose (mg/dL) 128 H 202 H Magnesium 1.9 Troponin I 0.03 D 09/13/16 16:19 POC Glucose (mg/dL) 92 Magnesium Troponin I Fingerstick Blood Sugar Results: 92 Review of Systems - Constitutional Constitutional: absent: Fever, Chills (resolved), Sweats - EENT Eyes: absent: Change in Vision, Diplopia Ears: absent: Dizziness - Cardiovascular Cardiovascular: absent: Chest Pain, Diaphoresis, Dyspnea, Orthopnea, Palpitations, Rapid Heart Rate, Syncope - Respiratory Respiratory: absent: Cough, Dyspnea, Pain on Inspiration, Chest Congestion - Gastrointestinal Gastrointestinal: absent: Abdominal Pain, Diarrhea, Nausea, Vomiting - Genitourinary Genitourinary: absent: Dysuria, Flank Pain - Musculoskeletal Musculoskeletal: absent: Back Pain, Numbness - Integumentary Integumentary: absent: Rash - Neurological Neurological: Headaches (mild). absent: Abnormal Speech, Confusion, Convulsions , Dizziness, Focal Weakness, Syncope, Weakness, Other Visual Disturbances - Psychiatric Psychiatric: absent: Confusion - Endocrine Endocrine: absent: Cold Intolorance, Excessive Sweating, Fatigue, Flushing, Heat Intolorance, Palpitations - Hematologic/Lymphatic Hematologic: absent: Easy Bleeding, Easy Bruising, Lymphadenopathy Critical Care Progress Note - Ventilator Checklist PUD Prophalyxis: Yes DVT Prophylaxis: Yes - Nutrition Nutrition: Nutrition Category Date Time Status Consistent Carbohydrate [DIET] Diets 09/13/16 Breakfast Ordered Assessment/Plan - Assessment and Plan (Free Text) Assessment: 61 yo M w h/o NIDDM2, HTN, CAD, PVD s/p CABG, ICD, coronary stents admitted with possible PNA/bronchitis now s/p 4 ICD discharges transferred to ICU on amiodarone Plan: Neuro: AAOx3, NAD. No current issues CV: s/p 4 ICD discharges - ICD malfunction vs infection vs electrolyte abnormalities vs TX vs Heart failure vs cardiomyopathy vs structural heart disease vs myocarditis vs pericarditis Obtain 2D ECHO to assess LVEF and wall motion function to evaluate for possible cause of V tach EP consult pending - ICD interrogation Patient receiving K, Mg, Ca, Cl supplementation. Recheck AM labs. Maintain K> 4, Mg>2 Trend troponins Continue Lipitor, Lisinopril, Spironolactone, ASA Amiodarone drip with loading dose Continuous telemetry monitoring Possible cath as per cardiology Pulm: Possible bronchitis/PNA. Cont abx as per hospitalist/ID GI: GI ppx Renal: No active issues. GFR >60. Cr 0.8. Continue to monitor Endo: Hold all oral anti-hyperglycemics. Lispro Low SSI. Continue Accuchecks ACHS Maintain euglycemia 140-180 Heme: Mild microcytic anemia. Will send iron panel ID: Possible bronchitis/PNA. Continue abx as per ID - Shalonda Lee, Vanc as per ID Influenza swab negative for flu Sputum and blood cultures pending Procalcitonin pending DVT/GI ppx: SQH, Protonix, DM diet Dispo: Transfer to ICU - Date & Time Date: 09/13/16 Time: 18:19 <Dorie PADRON,Samantha H - Last Filed: 09/13/16 18:48> CCU Objective - Vital Signs / Intake & Output Vital Signs (Last 4 hours): Vital Signs Temp Pulse Resp BP 09/13/16 18:19 83 116/56 L 09/13/16 17:00 99 F 70 18 09/13/16 15:06 100.7 F H Intake and Output (Last 8hrs): Intake & Output 09/13/16 09/13/16 09/13/16 06:59 14:59 22:59 Other: Voiding Method Urinal - Medications Active Medications: Active Medications Generic Name Dose Route Start Last Admin Trade Name Freq PRN Reason Stop Dose Admin Acetaminophen 650 mg 09/12/16 22:08 09/13/16 15:06 Tylenol 325mg Tab PO 650 mg Q4H PRN Administration Fever >100.5 F Amiodarone HCl 200 mg 09/14/16 06:00 Cordarone PO Q8 JAMAAL Aspirin 81 mg 09/13/16 10:00 09/13/16 09:48 Ecotrin PO 81 mg DAILY JAMAAL Administration Atorvastatin Calcium 10 mg 09/13/16 17:00 09/13/16 16:42 Lipitor PO 10 mg DIN JAMAAL Administration Doxycycline Hyclate 100 mg 09/13/16 22:00 Doryx PO 09/22/16 22:01 Q12 JAMAAL Protocol Heparin Sodium (Porcine) 5,000 units 09/13/16 22:00 Heparin SC Q12 JAMAAL Home Med 1 unit 09/14/16 10:00 Home Med PO DAILY JAMAAL Ceftriaxone Sodium 100 mls @ 100 mls/hr 09/13/16 12:18 09/13/16 14:10 Rocephin 1 Gram Ivpb IVPB 09/22/16 12:19 100 mls/hr DAILY JAMAAL Administration Protocol Vancomycin HCl 250 mls @ 167 mls/hr 09/13/16 12:30 09/13/16 14:11 Vancomycin 1gm IVPB 09/22/16 12:31 167 mls/hr Q12H JAMAAL Administration Protocol Amiodarone HCl/Dextrose 200 mls @ 33.333 mls/hr 09/13/16 16:15 09/13/16 18:19 Nexterone 360 Mg In D5w 200 Ml (Premix) IV 33.333 mls/hr .Q6H JAMAAL Administration Protocol 1 MG/MIN Insulin Human Lispro 0 units 09/13/16 22:00 Humalog Low SC ACHS JAMAAL Protocol Lisinopril 5 mg 09/13/16 10:00 09/13/16 09:49 Zestril PO 5 mg DAILY JAMAAL Administration Magnesium Chloride 64 mg 09/13/16 13:15 09/13/16 15:03 Slow-Mag PO 64 mg DAILY JAMAAL Administration Oseltamivir Phosphate 75 mg 09/13/16 18:00 09/13/16 18:31 Tamiflu Cap PO 09/18/16 18:01 75 mg BID JAMAAL Administration Protocol Pantoprazole Sodium 20 mg 09/14/16 07:30 [place] 0730 JAMAAL Spironolactone 25 mg 09/13/16 10:00 09/13/16 09:49 Aldactone PO 25 mg DAILY JAMAAL Administration - Patient Studies Lab Studies: Lab Studies 09/13/16 09/13/16 09/13/16 Range/Units 17:35 16:19 11:40 POC Glucose (mg/dL) 92 (65-110) mg/dL Magnesium 1.9 (1.7-2.2) mg/dL Troponin I 0.04 D 0.03 D ng/mL 09/13/16 09/13/16 Range/Units 11:22 07:31 POC Glucose (mg/dL) 202 H 128 H (65-110) mg/dL Magnesium (1.7-2.2) mg/dL Troponin I ng/mL Laboratory Results - last 24 hr 09/13/16 09/13/16 09/13/16 07:31 11:22 11:40 POC Glucose (mg/dL) 128 H 202 H Magnesium 1.9 Troponin I 0.03 D 09/13/16 09/13/16 16:19 17:35 POC Glucose (mg/dL) 92 Magnesium Troponin I 0.04 D Critical Care Progress Note - Nutrition Nutrition: Nutrition Category Date Time Status Consistent Carbohydrate [DIET] Diets 09/13/16 Breakfast Ordered Attending/Attestation - Attestation I have personally seen and examined this patient.: Yes I have fully participated in the care of the patient.: Yes I have reviewed all pertinent clinical information: Yes Notes (Text): 09/13/16 18:44 61 y/o M admitted to the MICU secondary to v-tach noted on telemetry Defibrilator present but on telemetry strip, its noted that multiple beats polymorphic/ monomorphic were paced and other were not. Have to r/o infection , blood cx, sputum cx etc. Empiric abx , no fluroquinolones Monitor heart function , ECHO ordered to check for any WMA . Possible myocarditis , URI, FLu neg. ough suppressants at night. Amiodarone ggt started x 6 hrs + 18 hrs. EP consult placed for device interrogation . Could be related to new coronary lesion, trend troponins, CHF on cxr, no obvious infiltrate, continue spironolactone, b blockers, asprin . KELSEA i? Cardiology following Dr Ramos cc time 65 min
[2016-09-13] MEDS: guaiFENesin 100 mg/5 ml Syrup UD PO PRN (21:27)
[2016-09-13] MEDS: Insulin Lispro (humaLOG) LOW Coverage SC SCH (23:25)
[2016-09-14 05:21] LABS: BASO # 0.01 K/mm3 (0.0-2.0); BASO % 0.2 % (0.0-3.0); GRAN # 3.24 (1.4-6.5); GRAN % 51.4 % (50.0-68.0); HEMATOCRIT 35.9 % (42.0-52.0); LYMPH # 2.2 (1.2-3.4); LYMPH % 34.1 % (22.0-35.0); MEAN CELL VOLUME 76.4 fL (80.0-105.0); MEAN CORPUSCULAR HEMOGLOBIN 24.5 pg (25.0-35.0); MEAN PLATELET VOLUME 10.5 fl (7.0-11.0); MONO # 0.9 (0.1-0.6); MONO % 14.3 % (1.0-6.0); PLATELET COUNT 169 10^3/uL (120.0-450.0); RED CELL DISTRIBUTION WIDTH 15.3 % (11.5-14.5); WHITE BLOOD COUNT 6.3 10^3/ul (4.5-11.0)
[2016-09-14 05:39] LABS: ALKALINE PHOSPHATASE 66 U/L (38-133); ALT/SGPT 34 U/L (7-56); AST/SGOT 38 U/L (15-59); BILIRUBIN,TOTAL 0.8 mg/dL (0.2-1.3); BLOOD UREA NITROGEN 13 mg/dL (7-21); CALCIUM 8.5 mg/dL (8.4-10.5); CARBON DIOXIDE 25 mmol/L (21-33); CHLORIDE 99 mmol/L (95-110); GFR AFRICAN-AMERICAN > 60; GLUCOSE,RANDOM 112 mg/dL (70-110); MAGNESIUM 2.1 mg/dL (1.7-2.2); PHOSPHOROUS 3.5 mg/dL (2.5-4.5); POTASSIUM 4.2 mmol/L (3.6-5.0); SODIUM 135 mmol/L (132-148); TOTAL PROTEIN 6.9 g/dL (5.8-8.3)
[2016-09-14 05:47] LABS: IRON 24 ug/dL (45-180); TROPONIN I 0.04 ng/mL
[2016-09-14 06:42] LABS: ADD MANUAL DIFF? NO
--- NOTE | 2016-09-14 07:36 | CP.CCUPN ---
<Miriam Arredondo - Last Filed: 09/14/16 16:16> CCU Subjective - Physician Review Events Since Last Encounter (Free Text): 09/14/16 11:16 Patient seen and examined bedside. No acute events overnight. Patient states his cough is significantly improved with Robitussin. Denies CP, SOB, abd pain improved since he is not coughing as much, denies fevers, chills, n/v/d. Going for cardiac cath this AM. 09/14/16 16:22 S/p cardiac cath. Spoke with basketball coach - No critical lesions, however EF 15% . Patient to be given 40mg IV lasix and started on primacor as per cardiology. Can be transferred to telemetry. 09/14/16 16:27 Critical Care Time Spent (in minutes): 30 CCU Objective - Vital Signs / Intake & Output Vital Signs (Last 4 hours): Vital Signs Temp Pulse Resp BP Pulse Ox 09/14/16 04:00 99.3 F 70 24 123/69 99 Intake and Output (Last 8hrs): Intake & Output 09/13/16 09/14/16 09/14/16 22:59 06:59 14:59 Intake Total 580 499 Output Total 450 200 Balance 130 299 Weight 183 lb 1.6 oz Intake: IV 100 299 Right Forearm 100 299 Oral 480 200 Output: Urine 450 200 Urine, Voided 450 200 Other: Voiding Method Urinal Urinal # Voids Urine, Voided 3 # Bowel Movements 0 - Physical Exam Head: Positive for: Atraumatic, Normocephalic Pupils: Positive for: PERRL Extroacular Muscles: Positive for: EOMI Conjunctiva: Positive for: Normal Mouth: Positive for: Moist Mucous Membranes Neck: Positive for: Normal Range of Motion Respiratory/Chest: Positive for: Clear to Auscultation, Good Air Exchange. Negative for: Respiratory Distress, Accessory Muscle Use Cardiovascular: Positive for: Regular Rate and Rhythm, Normal S1, S2. Negative for: Murmurs Abdomen: Positive for: Normal Bowel Sounds. Negative for: Tenderness, Distention, Peritoneal Signs Back: Positive for: Normal Inspection Upper Extremity: Positive for: Normal Inspection. Negative for: Cyanosis, Edema Lower Extremity: Positive for: Normal Inspection. Negative for: Edema Neurological: Positive for: GCS=15, CN II-XII Intact, Speech Normal Skin: Positive for: Warm, Dry, Normal Color. Negative for: Rashes Psychiatric: Positive for: Alert, Oriented x 3, Normal Insight, Normal Concentration - Medications Active Medications: Active Medications Generic Name Dose Route Start Last Admin Trade Name Freq PRN Reason Stop Dose Admin Acetaminophen 650 mg 09/12/16 22:08 09/13/16 15:06 Tylenol 325mg Tab PO 650 mg Q4H PRN Administration Fever >100.5 F Amiodarone HCl 200 mg 09/14/16 06:00 Cordarone PO Q8 JAMAAL Aspirin 81 mg 09/13/16 10:00 09/13/16 09:48 Ecotrin PO 81 mg DAILY JAMAAL Administration Atorvastatin Calcium 10 mg 09/13/16 17:00 09/13/16 16:42 Lipitor PO 10 mg DIN JAMAAL Administration Doxycycline Hyclate 100 mg 09/13/16 22:00 09/13/16 21:21 Doryx PO 09/22/16 22:01 100 mg Q12 JAMAAL Administration Protocol Guaifenesin 100 mg 09/13/16 20:57 09/13/16 21:27 Robitussin PO 100 mg Q4H PRN Administration Cough Heparin Sodium (Porcine) 5,000 units 09/13/16 22:00 09/13/16 21:22 Heparin SC 5,000 units Q12 JAMAAL Administration Home Med 1 unit 09/14/16 10:00 Home Med PO DAILY JAMAAL Ceftriaxone Sodium 100 mls @ 100 mls/hr 09/13/16 12:18 09/13/16 14:10 Rocephin 1 Gram Ivpb IVPB 09/22/16 12:19 100 mls/hr DAILY JAMAAL Administration Protocol Vancomycin HCl 250 mls @ 167 mls/hr 09/13/16 12:30 09/13/16 23:29 Vancomycin 1gm IVPB 09/22/16 12:31 167 mls/hr Q12H JAMAAL Administration Protocol Amiodarone HCl/Dextrose 200 mls @ 16.667 mls/hr 09/13/16 19:15 09/13/16 23:18 Nexterone 360 Mg In D5w 200 Ml (Premix) IV 16.667 mls/hr .Q12H JAMAAL Administration Protocol 0.5 MG/MIN Insulin Human Lispro 0 units 09/13/16 22:00 09/13/16 23:25 Humalog Low SC Not Given ACHS JAMAAL Protocol Lisinopril 5 mg 09/13/16 10:00 09/13/16 09:49 Zestril PO 5 mg DAILY JAMAAL Administration Magnesium Chloride 64 mg 09/13/16 13:15 09/13/16 15:03 Slow-Mag PO 64 mg DAILY JAMAAL Administration Oseltamivir Phosphate 75 mg 09/13/16 18:00 09/13/16 18:31 Tamiflu Cap PO 09/18/16 18:01 75 mg BID JAMAAL Administration Protocol Pantoprazole Sodium 20 mg 09/14/16 07:30 Protonix [place] 0730 [facility] Spironolactone 25 mg 09/13/16 10:00 09/13/16 09:49 Aldactone PO 25 mg DAILY JAMAAL Administration - Patient Studies Lab Studies: Microbiology Studies 09/13/16 18:20 Gram Stain - Final Sputum Lab Studies 09/14/16 09/13/16 09/13/16 Range/Units 05:05 23:49 17:35 WBC 6.3 D (4.5-11.0) 10^3/ul RBC 4.70 (3.5-6.1) 10^6/uL Hgb 11.5 L (14.0-18.0) gm/dL Hct 35.9 L (42.0-52.0) % MCV 76.4 L (80.0-105.0) fL MCH 24.5 L (25.0-35.0) pg MCHC 32.0 (31.0-37.0) g/dl RDW 15.3 H (11.5-14.5) % Plt Count 169 (120.0-450.0) 10^3/uL MPV 10.5 (7.0-11.0) fl Gran % 51.4 (50.0-68.0) % Lymph % (Auto) 34.1 (22.0-35.0) % Bureau % (Auto) 14.3 H (1.0-6.0) % Eos % (Auto) 0.0 L (1.5-5.0) % Baso % (Auto) 0.2 (0.0-3.0) % Gran # 3.24 (1.4-6.5) Lymph # 2.2 (1.2-3.4) Bureau # 0.9 H (0.1-0.6) Eos # 0.0 (0.0-0.7) Baso # 0.01 (0.0-2.0) K/mm3 Sodium 135 (132-148) mmol/L Potassium 4.2 (3.6-5.0) mmol/L Chloride 99 (95-110) mmol/L Carbon Dioxide 25 (21-33) mmol/L Anion Gap 15 (10-20) BUN 13 (7-21) mg/dL Creatinine 0.7 (0.5-1.4) mg/dL Est GFR ( Amer) > 60 Est GFR (Non-Af Amer) > 60 POC Glucose (mg/dL) (65-110) mg/dL Random Glucose 112 H (70-110) mg/dL Calcium 8.5 (8.4-10.5) mg/dL Phosphorus 3.5 (2.5-4.5) mg/dL Magnesium 2.1 (1.7-2.2) mg/dL Iron 24 L (45-180) ug/dL TIBC 269 (261-462) ug/dL % Saturation 9 L (20-55) % Total Bilirubin 0.8 (0.2-1.3) mg/dL AST 38 (15-59) U/L ALT 34 (7-56) U/L Alkaline Phosphatase 66 (38-133) U/L Troponin I 0.04 0.04 0.04 D ng/mL Total Protein 6.9 (5.8-8.3) g/dL Albumin 3.5 (3.0-4.8) g/dL Globulin 3.4 gm/dL Albumin/Globulin Ratio 1.0 L (1.1-1.8) Procalcitonin (0.19-0.49) NG/ML 09/13/16 09/13/16 09/13/16 Range/Units 16:19 13:00 11:40 WBC (4.5-11.0) 10^3/ul RBC (3.5-6.1) 10^6/uL Hgb (14.0-18.0) gm/dL Hct (42.0-52.0) % MCV (80.0-105.0) fL MCH (25.0-35.0) pg MCHC (31.0-37.0) g/dl RDW (11.5-14.5) % Plt Count (120.0-450.0) 10^3/uL MPV (7.0-11.0) fl Gran % (50.0-68.0) % Lymph % (Auto) (22.0-35.0) % Bureau % (Auto) (1.0-6.0) % Eos % (Auto) (1.5-5.0) % Baso % (Auto) (0.0-3.0) % Gran # (1.4-6.5) Lymph # (1.2-3.4) Bureau # (0.1-0.6) Eos # (0.0-0.7) Baso # (0.0-2.0) K/mm3 Sodium (132-148) mmol/L Potassium (3.6-5.0) mmol/L Chloride (95-110) mmol/L Carbon Dioxide (21-33) mmol/L Anion Gap (10-20) BUN (7-21) mg/dL Creatinine (0.5-1.4) mg/dL Est GFR ( Amer) Est GFR (Non-Af Amer) POC Glucose (mg/dL) 92 (65-110) mg/dL Random Glucose (70-110) mg/dL Calcium (8.4-10.5) mg/dL Phosphorus (2.5-4.5) mg/dL Magnesium 1.9 (1.7-2.2) mg/dL Iron (45-180) ug/dL TIBC (261-462) ug/dL % Saturation (20-55) % Total Bilirubin (0.2-1.3) mg/dL AST (15-59) U/L ALT (7-56) U/L Alkaline Phosphatase (38-133) U/L Troponin I 0.03 D ng/mL Total Protein (5.8-8.3) g/dL Albumin (3.0-4.8) g/dL Globulin gm/dL Albumin/Globulin Ratio (1.1-1.8) Procalcitonin 0.16 L (0.19-0.49) NG/ML 09/13/16 09/13/16 Range/Units 11:22 07:31 WBC (4.5-11.0) 10^3/ul RBC (3.5-6.1) 10^6/uL Hgb (14.0-18.0) gm/dL Hct (42.0-52.0) % MCV (80.0-105.0) fL MCH (25.0-35.0) pg MCHC (31.0-37.0) g/dl RDW (11.5-14.5) % Plt Count (120.0-450.0) 10^3/uL MPV (7.0-11.0) fl Gran % (50.0-68.0) % Lymph % (Auto) (22.0-35.0) % Bureau % (Auto) (1.0-6.0) % Eos % (Auto) (1.5-5.0) % Baso % (Auto) (0.0-3.0) % Gran # (1.4-6.5) Lymph # (1.2-3.4) Bureau # (0.1-0.6) Eos # (0.0-0.7) Baso # (0.0-2.0) K/mm3 Sodium (132-148) mmol/L Potassium (3.6-5.0) mmol/L Chloride (95-110) mmol/L Carbon Dioxide (21-33) mmol/L Anion Gap (10-20) BUN (7-21) mg/dL Creatinine (0.5-1.4) mg/dL Est GFR ( Amer) Est GFR (Non-Af Amer) POC Glucose (mg/dL) 202 H 128 H (65-110) mg/dL Random Glucose (70-110) mg/dL Calcium (8.4-10.5) mg/dL Phosphorus (2.5-4.5) mg/dL Magnesium (1.7-2.2) mg/dL Iron (45-180) ug/dL TIBC (261-462) ug/dL % Saturation (20-55) % Total Bilirubin (0.2-1.3) mg/dL AST (15-59) U/L ALT (7-56) U/L Alkaline Phosphatase (38-133) U/L Troponin I ng/mL Total Protein (5.8-8.3) g/dL Albumin (3.0-4.8) g/dL Globulin gm/dL Albumin/Globulin Ratio (1.1-1.8) Procalcitonin (0.19-0.49) NG/ML Laboratory Results - last 24 hr 09/13/16 09/13/16 09/13/16 07:31 11:22 11:40 WBC RBC Hgb Hct MCV MCH MCHC RDW Plt Count MPV Gran % Lymph % (Auto) Bureau % (Auto) Eos % (Auto) Baso % (Auto) Gran # Lymph # Bureau # Eos # Baso # Sodium Potassium Chloride Carbon Dioxide Anion Gap BUN Creatinine Est GFR ( Amer) Est GFR (Non-Af Amer) POC Glucose (mg/dL) 128 H 202 H Random Glucose Calcium Phosphorus Magnesium 1.9 Iron TIBC % Saturation Total Bilirubin AST ALT Alkaline Phosphatase Troponin I 0.03 D Total Protein Albumin Globulin Albumin/Globulin Ratio Procalcitonin 09/13/16 09/13/16 09/13/16 13:00 16:19 17:35 WBC RBC Hgb Hct MCV MCH MCHC RDW Plt Count MPV Gran % Lymph % (Auto) Bureau % (Auto) Eos % (Auto) Baso % (Auto) Gran # Lymph # Bureau # Eos # Baso # Sodium Potassium Chloride Carbon Dioxide Anion Gap BUN Creatinine Est GFR ( Amer) Est GFR (Non-Af Amer) POC Glucose (mg/dL) 92 Random Glucose Calcium Phosphorus Magnesium Iron TIBC % Saturation Total Bilirubin AST ALT Alkaline Phosphatase Troponin I 0.04 D Total Protein Albumin Globulin Albumin/Globulin Ratio Procalcitonin 0.16 L 09/13/16 09/14/16 23:49 05:05 WBC 6.3 D RBC 4.70 Hgb 11.5 L Hct 35.9 L MCV 76.4 L MCH 24.5 L MCHC 32.0 RDW 15.3 H Plt Count 169 MPV 10.5 Gran % 51.4 Lymph % (Auto) 34.1 Bureau % (Auto) 14.3 H Eos % (Auto) 0.0 L Baso % (Auto) 0.2 Gran # 3.24 Lymph # 2.2 Bureau # 0.9 H Eos # 0.0 Baso # 0.01 Sodium 135 Potassium 4.2 Chloride 99 Carbon Dioxide 25 Anion Gap 15 BUN 13 Creatinine 0.7 Est GFR ( Amer) > 60 Est GFR (Non-Af Amer) > 60 POC Glucose (mg/dL) Random Glucose 112 H Calcium 8.5 Phosphorus 3.5 Magnesium 2.1 Iron 24 L TIBC 269 % Saturation 9 L Total Bilirubin 0.8 AST 38 ALT 34 Alkaline Phosphatase 66 Troponin I 0.04 0.04 Total Protein 6.9 Albumin 3.5 Globulin 3.4 Albumin/Globulin Ratio 1.0 L Procalcitonin Fingerstick Blood Sugar Results: 163 Review of Systems - Constitutional Constitutional: absent: Fever, Chills - EENT Eyes: absent: Blurred Vision, Change in Vision, Diplopia Ears: absent: Dizziness - Cardiovascular Cardiovascular: absent: Chest Pain, Dyspnea - Gastrointestinal Gastrointestinal: absent: Abdominal Pain, Diarrhea, Nausea, Vomiting - Genitourinary Genitourinary: absent: Dysuria - Neurological Neurological: absent: Focal Weakness, Headaches, Loss of Vision - Endocrine Endocrine: absent: Palpitations Critical Care Progress Note - Ventilator Checklist PUD Prophalyxis: Yes DVT Prophylaxis: Yes - Nutrition Nutrition: Nutrition Category Date Time Status Consistent Carbohydrate [DIET] Diets 09/13/16 Breakfast Ordered Assessment/Plan - Assessment and Plan (Free Text) Assessment: 61 yo M w h/o NIDDM2, HTN, CAD, PVD s/p CABG, ICD, coronary stents admitted with possible PNA/bronchitis, s/p 4 ICD discharges transferred to ICU on amiodarone now s/p cardiac cath with no critical stenosis however significant reduction in LVEF as compared to EF in 05/2016. Plan: Neuro: AAOx3, NAD. No current issues CV: s/p 4 ICD discharges - ICD malfunction vs infection vs electrolyte abnormalities vs CT vs Heart failure vs cardiomyopathy vs structural heart disease vs myocarditis vs pericarditis 2D ECHO pending s/p cardiac cath - no critical, stentable lesions, however significant reduction in EF since 05/2016. Will f/u 2D ECHO. Lasix as per cardio EP consult pending - ICD interrogation Maintain K>4, Mg>2 Troponins trended and negative x5 Continue Lipitor, Lisinopril, Spironolactone, ASA, Amio Amiodarone drip. Primacor as per cardio Pulm: BL LL multifocal CAP. Cont Rocephin, doxy, tamiflu ID Robitussin PRN cough GI: GI ppx Renal: No active issues. GFR >60. Cr 0.8. Continue to monitor Endo: Hold all oral anti-hyperglycemics. Lispro Low SSI. Continue Accuchecks ACHS Maintain euglycemia 140-180 Heme: Mild microcytic anemia. Will send iron panel ID: BL LL multifocal CAP. Cont Rocephin, doxy, tamiflu ID Influenza swab negative for flu Prelim Sputum cultures negative. Final urine cultures negative. Blood cultures negative at 24 hours. Procalcitonin not elevated (0.16) DVT/GI ppx: SQH, Protonix, DM diet Dispo: Transfer to telemetry - Date & Time Date: 09/14/16 Time: 16:27 <Dorie PADRON,Samantha H - Last Filed: 09/14/16 17:58> CCU Objective - Vital Signs / Intake & Output Vital Signs (Last 4 hours): Vital Signs Pulse BP 09/14/16 14:45 105/64 09/14/16 14:44 67 105/64 Intake and Output (Last 8hrs): Intake & Output 09/14/16 09/14/16 09/14/16 06:59 14:59 22:59 Intake Total 499 Output Total 200 Balance 299 Weight 183 lb 1.6 oz Intake: IV 299 Right Forearm 299 Oral 200 Output: Urine 200 Urine, Voided 200 Other: Voiding Method Urinal - Medications Active Medications: Active Medications Generic Name Dose Route Start Last Admin Trade Name Freq PRN Reason Stop Dose Admin Acetaminophen 650 mg 09/12/16 22:08 09/13/16 15:06 Tylenol 325mg Tab PO 650 mg Q4H PRN Administration Fever >100.5 F Amiodarone HCl 400 mg 09/14/16 10:00 09/14/16 14:44 Cordarone PO 09/16/16 23:59 400 mg TID JAMAAL Administration Amiodarone HCl 200 mg 09/17/16 10:00 Cordarone PO DAILY JAMAAL Aspirin 81 mg 09/13/16 10:00 09/14/16 09:43 Ecotrin PO 81 mg DAILY JAMAAL Administration Atorvastatin Calcium 10 mg 09/13/16 17:00 09/13/16 16:42 Lipitor PO 10 mg DIN JAMAAL Administration Digoxin 0.25 mg 09/15/16 14:06 Lanoxin PO 1400 JAMAAL Doxycycline Hyclate 100 mg 09/13/16 22:00 09/14/16 09:43 Doryx PO 09/22/16 22:01 100 mg Q12 JAMAAL Administration Protocol Furosemide 40 mg 09/15/16 10:00 Lasix PO DAILY JAMAAL Guaifenesin 100 mg 09/13/16 20:57 09/13/16 21:27 Robitussin PO 100 mg Q4H PRN Administration Cough Home Med 1 unit 09/14/16 10:00 Home Med PO DAILY JAMAAL Ceftriaxone Sodium 100 mls @ 100 mls/hr 09/13/16 12:18 09/14/16 09:45 Rocephin 1 Gram Ivpb IVPB 09/22/16 12:19 100 mls/hr DAILY JAMAAL Administration Protocol Amiodarone HCl/Dextrose 200 mls @ 16.667 mls/hr 09/13/16 19:15 09/13/16 23:18 Nexterone 360 Mg In D5w 200 Ml (Premix) IV 09/14/16 18:00 16.667 mls/hr .Q12H JAMAAL Administration Protocol 0.5 MG/MIN Milrinone Lactate/Dextrose 100 mls @ 4.983 mls/hr 09/14/16 19:00 Primacor 20mg/100ml D5w IV 09/16/16 07:00 .Q20H5M PRN TITRATE PER MD ORDER Protocol 0.2 MCG/KG/MIN Insulin Human Lispro 0 units 09/13/16 22:00 09/14/16 14:20 Humalog Low SC Not Given ACHS JAMAAL Protocol Lisinopril 5 mg 09/13/16 10:00 09/14/16 09:47 Zestril PO 5 mg DAILY JAMAAL Administration Magnesium Chloride 64 mg 09/13/16 13:15 09/14/16 09:46 Slow-Mag PO 64 mg DAILY JAMAAL Administration Oseltamivir Phosphate 75 mg 09/13/16 18:00 09/14/16 09:46 Tamiflu Cap PO 09/18/16 18:01 75 mg BID JAMAAL Administration Protocol Pantoprazole Sodium 20 mg 09/14/16 07:30 09/14/16 09:45 Protonix Ec Tab PO 20 mg 0730 JAMAAL Administration Spironolactone 25 mg 09/13/16 10:00 09/14/16 09:36 Aldactone PO 25 mg DAILY JAMAAL Administration - Patient Studies Lab Studies: Microbiology Studies 09/13/16 18:20 Gram Stain - Final Sputum Sputum Culture - Preliminary NORMAL ORAL JEAN PIERRE Lab Studies 09/14/16 09/14/16 09/13/16 Range/Units 16:19 05:05 23:49 WBC 6.3 D (4.5-11.0) 10^3/ul RBC 4.70 (3.5-6.1) 10^6/uL Hgb 11.5 L (14.0-18.0) gm/dL Hct 35.9 L (42.0-52.0) % MCV 76.4 L (80.0-105.0) fL MCH 24.5 L (25.0-35.0) pg MCHC 32.0 (31.0-37.0) g/dl RDW 15.3 H (11.5-14.5) % Plt Count 169 (120.0-450.0) 10^3/uL MPV 10.5 (7.0-11.0) fl Gran % 51.4 (50.0-68.0) % Lymph % (Auto) 34.1 (22.0-35.0) % Bureau % (Auto) 14.3 H (1.0-6.0) % Eos % (Auto) 0.0 L (1.5-5.0) % Baso % (Auto) 0.2 (0.0-3.0) % Gran # 3.24 (1.4-6.5) Lymph # 2.2 (1.2-3.4) Bureau # 0.9 H (0.1-0.6) Eos # 0.0 (0.0-0.7) Baso # 0.01 (0.0-2.0) K/mm3 Sodium 135 (132-148) mmol/L Potassium 4.2 (3.6-5.0) mmol/L Chloride 99 (95-110) mmol/L Carbon Dioxide 25 (21-33) mmol/L Anion Gap 15 (10-20) BUN 13 (7-21) mg/dL Creatinine 0.7 (0.5-1.4) mg/dL Est GFR ( Amer) > 60 Est GFR (Non-Af Amer) > 60 POC Glucose (mg/dL) 154 H (65-110) mg/dL Random Glucose 112 H (70-110) mg/dL Calcium 8.5 (8.4-10.5) mg/dL Phosphorus 3.5 (2.5-4.5) mg/dL Magnesium 2.1 (1.7-2.2) mg/dL Iron 24 L (45-180) ug/dL TIBC 269 (261-462) ug/dL % Saturation 9 L (20-55) % Transferrin 199.45 L (206-381) mg/dL Ferritin 184.0 ng/mL Total Bilirubin 0.8 (0.2-1.3) mg/dL AST 38 (15-59) U/L ALT 34 (7-56) U/L Alkaline Phosphatase 66 (38-133) U/L Troponin I 0.04 0.04 ng/mL Total Protein 6.9 (5.8-8.3) g/dL Albumin 3.5 (3.0-4.8) g/dL Globulin 3.4 gm/dL Albumin/Globulin Ratio 1.0 L (1.1-1.8) Procalcitonin (0.19-0.49) NG/ML HIV-1 Antibody HIV-2 Antibody HIV 1&2 Ag/Ab, 4th Gen (Nonreactive) 09/13/16 09/13/16 Range/Units 17:35 13:00 WBC (4.5-11.0) 10^3/ul RBC (3.5-6.1) 10^6/uL Hgb (14.0-18.0) gm/dL Hct (42.0-52.0) % MCV (80.0-105.0) fL MCH (25.0-35.0) pg MCHC (31.0-37.0) g/dl RDW (11.5-14.5) % Plt Count (120.0-450.0) 10^3/uL MPV (7.0-11.0) fl Gran % (50.0-68.0) % Lymph % (Auto) (22.0-35.0) % Bureau % (Auto) (1.0-6.0) % Eos % (Auto) (1.5-5.0) % Baso % (Auto) (0.0-3.0) % Gran # (1.4-6.5) Lymph # (1.2-3.4) Bureau # (0.1-0.6) Eos # (0.0-0.7) Baso # (0.0-2.0) K/mm3 Sodium (132-148) mmol/L Potassium (3.6-5.0) mmol/L Chloride (95-110) mmol/L Carbon Dioxide (21-33) mmol/L Anion Gap (10-20) BUN (7-21) mg/dL Creatinine (0.5-1.4) mg/dL Est GFR ( Amer) Est GFR (Non-Af Amer) POC Glucose (mg/dL) (65-110) mg/dL Random Glucose (70-110) mg/dL Calcium (8.4-10.5) mg/dL Phosphorus (2.5-4.5) mg/dL Magnesium (1.7-2.2) mg/dL Iron (45-180) ug/dL TIBC (261-462) ug/dL % Saturation (20-55) % Transferrin (206-381) mg/dL Ferritin ng/mL Total Bilirubin (0.2-1.3) mg/dL AST (15-59) U/L ALT (7-56) U/L Alkaline Phosphatase (38-133) U/L Troponin I 0.04 D ng/mL Total Protein (5.8-8.3) g/dL Albumin (3.0-4.8) g/dL Globulin gm/dL Albumin/Globulin Ratio (1.1-1.8) Procalcitonin 0.16 L (0.19-0.49) NG/ML HIV-1 Antibody TEST NOT PERFORMED HIV-2 Antibody TEST NOT PERFORMED HIV 1&2 Ag/Ab, 4th Gen Nonreactive (Nonreactive) Laboratory Results - last 24 hr 09/13/16 09/13/16 09/13/16 13:00 17:35 23:49 WBC RBC Hgb Hct MCV MCH MCHC RDW Plt Count MPV Gran % Lymph % (Auto) Bureau % (Auto) Eos % (Auto) Baso % (Auto) Gran # Lymph # Bureau # Eos # Baso # Sodium Potassium Chloride Carbon Dioxide Anion Gap BUN Creatinine Est GFR ( Amer) Est GFR (Non-Af Amer) POC Glucose (mg/dL) Random Glucose Calcium Phosphorus Magnesium Iron TIBC % Saturation Transferrin Ferritin Total Bilirubin AST ALT Alkaline Phosphatase Troponin I 0.04 D 0.04 Total Protein Albumin Globulin Albumin/Globulin Ratio Procalcitonin 0.16 L HIV-1 Antibody TEST NOT PERFORMED HIV-2 Antibody TEST NOT PERFORMED HIV 1&2 Ag/Ab, 4th Gen Nonreactive 09/14/16 09/14/16 05:05 16:19 WBC 6.3 D RBC 4.70 Hgb 11.5 L Hct 35.9 L MCV 76.4 L MCH 24.5 L MCHC 32.0 RDW 15.3 H Plt Count 169 MPV 10.5 Gran % 51.4 Lymph % (Auto) 34.1 Bureau % (Auto) 14.3 H Eos % (Auto) 0.0 L Baso % (Auto) 0.2 Gran # 3.24 Lymph # 2.2 Bureau # 0.9 H Eos # 0.0 Baso # 0.01 Sodium 135 Potassium 4.2 Chloride 99 Carbon Dioxide 25 Anion Gap 15 BUN 13 Creatinine 0.7 Est GFR ( Amer) > 60 Est GFR (Non-Af Amer) > 60 POC Glucose (mg/dL) 154 H Random Glucose 112 H Calcium 8.5 Phosphorus 3.5 Magnesium 2.1 Iron 24 L TIBC 269 % Saturation 9 L Transferrin 199.45 L Ferritin 184.0 Total Bilirubin 0.8 AST 38 ALT 34 Alkaline Phosphatase 66 Troponin I 0.04 Total Protein 6.9 Albumin 3.5 Globulin 3.4 Albumin/Globulin Ratio 1.0 L Procalcitonin HIV-1 Antibody HIV-2 Antibody HIV 1&2 Ag/Ab, 4th Gen Critical Care Progress Note - Nutrition Nutrition: Nutrition Category Date Time Status Consistent Carbohydrate [DIET] Diets 09/13/16 Breakfast Ordered Attending/Attestation - Attestation I have personally seen and examined this patient.: Yes I have fully participated in the care of the patient.: Yes I have reviewed all pertinent clinical information: Yes Notes (Text): 09/14/16 17:55 61 y/o M being followed in the ICU overnight due to defib firing with V-Tach S/P cardiac cath today , without any new coronary findings. EF severely reduced 10-15%.On lasix BID, follow urine output. Started on Primacor by cardiology No further need for amiodarone and no further shocks. awaiting EP consult. URI- on empiric abx , without any source , Tamiflu to be finished cc time 55 min
[2016-09-14] MEDS: Insulin Lispro (humaLOG) LOW Coverage SC SCH ×4 (08:51→22:16)
--- NOTE | 2016-09-14 08:57 | CT ---
PROCEDURE: CT Chest without contrast HISTORY: fever cough, neg cxr COMPARISON: None. TECHNIQUE: Contiguous axial images were obtained through the chest without intravenous contrast enhancement. Sagittal and coronal reconstructions were performed. Radiation dose (DLP): 703.37 mGy-cm. FINDINGS: LUNGS: There are scattered hazy central lobular nodules associated with tree-in-bud opacities more prominent at the mid and lower lungs right more than left and associated with scattered small foci of airspace consolidation. Findings are likely represent infectious process and intrabronchial spread of infection which may be due to bacterial or viral infection. Associated small multifocal pneumonia are also suspected. Mild pulmonary vascular congestion is also noted. MEDIASTINUM: Unremarkable thoracic aorta. No aneurysm. The heart is mildly to moderately enlarged. Main pulmonary artery is mildly enlarged. There is mild pulmonary vascular congestion. Mild mediastinal lymphadenopathy are seen. Pacemaker wires seen extending to the right heart. Post cardiac surgery changes are again seen. PLEURA: No pleural fluid. No pneumothorax. BONES: No fracture. No destructive lesion. UPPER ABDOMEN: Gallstones seen without evidence of acute cholecystitis. OTHER FINDINGS: None. IMPRESSION: Scattered hazy centrilobular nodules associated with tree-in-bud opacities more prominent at the mid and lower lungs right more than left suspicious for infectious process and intrabronchial spread of infection. Small foci of airspace consolidation also noted suggestive of small multifocal pneumonia. Cardiomegaly and mild pulmonary vascular congestion. Mildly enlarged mediastinal lymph nodes.
--- NOTE | 2016-09-14 09:36 | CP.PCM.PN ---
Subjective - Date & Time of Evaluation Date of Evaluation: 09/14/16 Time of Evaluation: 08:40 - Subjective Subjective: Comfortable in bed, less cough compared to yesterday, overnight was uneventful, no fevers overnight, no diarrhea, breathing is much improved. Objective - Vital Signs/Intake and Output Vital Signs (last 24 hours): Temp Pulse Resp BP Pulse Ox 99.3 F 74 24 111/64 99 09/14/16 04:00 09/14/16 07:42 09/14/16 04:00 09/14/16 07:42 09/14/16 04:00 Intake and Output: 09/14/16 09/14/16 06:59 18:59 Intake Total 499 Output Total 200 Balance 299 - Medications Medications: Current Medications Acetaminophen (Tylenol 325mg Tab) 650 mg PO Q4H PRN PRN Reason: Fever >100.5 F Last Admin: 09/13/16 15:06 Dose: 650 mg Amiodarone HCl (Cordarone) 400 mg PO TID [facility] Stop: 09/16/16 23:59 Amiodarone HCl (Cordarone) 200 mg PO DAILY [facility] Aspirin (Ecotrin) 81 mg PO DAILY [facility] Last Admin: 09/13/16 09:48 Dose: 81 mg Atorvastatin Calcium (Lipitor) 10 mg PO DIN [facility] Last Admin: 09/13/16 16:42 Dose: 10 mg Doxycycline Hyclate (Doryx) 100 mg PO Q12 [facility] PRN Reason: Protocol Stop: 09/22/16 22:01 Last Admin: 09/13/16 21:21 Dose: 100 mg Guaifenesin (Robitussin) 100 mg PO Q4H PRN PRN Reason: Cough Last Admin: 09/13/16 21:27 Dose: 100 mg Home Med (Home Med) 1 unit PO DAILY [facility] Ceftriaxone Sodium (Rocephin 1 Gram Ivpb) 100 mls @ 100 mls/hr IVPB DAILY [facility] PRN Reason: Protocol Stop: 09/22/16 12:19 Last Admin: 09/13/16 14:10 Dose: 100 mls/hr Vancomycin HCl (Vancomycin 1gm) 250 mls @ 167 mls/hr IVPB Q12H [facility] PRN Reason: Protocol Stop: 09/22/16 12:31 Last Admin: 09/13/16 23:29 Dose: 167 mls/hr Amiodarone HCl/Dextrose (Nexterone 360 Mg In D5w 200 Ml (Premix)) 200 mls @ 16.667 mls/hr IV .Q12H JAMAAL; 0.5 MG/MIN PRN Reason: Protocol Stop: 09/14/16 18:00 Last Admin: 09/13/16 23:18 Dose: 16.667 mls/hr Insulin Human Lispro (Humalog Low) 0 units SC ACHS [facility] PRN Reason: Protocol Last Admin: 09/14/16 08:51 Dose: Not Given Lisinopril (Zestril) 5 mg PO DAILY [facility] Last Admin: 09/13/16 09:49 Dose: 5 mg Magnesium Chloride (Slow-Mag) 64 mg PO DAILY [facility] Last Admin: 09/13/16 15:03 Dose: 64 mg Oseltamivir Phosphate (Tamiflu Cap) 75 mg PO BID [facility] PRN Reason: Protocol Stop: 09/18/16 18:01 Last Admin: 09/13/16 18:31 Dose: 75 mg Pantoprazole Sodium (Protonix Ec Tab) 20 mg PO 0730 [facility] Spironolactone (Aldactone) 25 mg PO DAILY [facility] Last Admin: 09/13/16 09:49 Dose: 25 mg - Labs Labs: 09/14/16 05:05 09/14/16 05:05 - Constitutional Appears: Non-toxic, No Acute Distress - Head Exam Head Exam: NORMAL INSPECTION - ENT Exam ENT Exam: Mucous Membranes Moist - Neck Exam Neck Exam: absent: Lymphadenopathy, Meningismus - Respiratory Exam Respiratory Exam: Decreased Breath Sounds Additional comments: crackles at the bases - Cardiovascular Exam Cardiovascular Exam: +S1, +S2 - GI/Abdominal Exam GI & Abdominal Exam: Soft. absent: Tenderness Assessment and Plan - Assessment and Plan (Free Text) Plan: Assessment Consider sepsis secondary to bilateral lower lobe, multifocal community- acquired pneumonia, clinically improving R/O systemic viral illness with Influenza CAD S/P pacemaker placement HTN DM obesity with BMI 34 peripheral arterial disease Plan Continue Rocephin, Doxycycline and Tamiflu (day 2); awaiting final blood and sputum cx results; reviewed CT chest which multiple areas of infiltrates in the lower lobes; PCT is 0.16; so far no evidence of MRSA, will d/c Vancomycin Will continue to monitor clinical response
[2016-09-14] MEDS: cefTRIAXone 1 gm 100 ML IVPB SCH (09:45)
[2016-09-14] MEDS: Pantoprazole 20 mg EC Tab PO SCH (09:45)
[2016-09-14] MEDS: Magnesium Chloride 64 mg ER Tab PO SCH (09:46)
--- NOTE | 2016-09-14 09:59 | PN ---
DATE: 09/14/2016 REASON FOR CONSULTATION AND FOLLOWUP: Ventricular tachycardia, coronary artery disease, CABG. BRIEF CLINICAL HISTORY: This is a 61-year-old male with a past medical history significant for hypertension, diabetes, coronary artery disease, status post quadruple bypass in 1995, quadruple, followed by coronary stent in the past many years ago, being followed by Dr. Long at [facility], history of AICD placed in 2004 with pulse generator change in 2014, who had cold, cough and then patient had defibrillator went off, so came to the Emergency Room. While the patient was a dmitted to telemetry, had another episode of went off, then was transferred to ICU where the ird time, patient had went off. The patient was experiencing low-grade fever, started at home with a cough, took Tylenol, get better. Then, again had at 9 p.m. another fever, so took another Tyl enol. By that time, the defibrillator went off, so came to the Emergency Room. Denies any chest feroz n. PAST MEDICAL HISTORY: Significant for coronary artery disease, CABG 1995, 4-vessel bypass. Then, a stent later on by Dr. Long. The patient had ischemic cardiomyopathy, status post AICD 2004, being f ollowed by Dr. Kirk at [facility]. Rec ently, pulse generator change in 2014. The patient follows with Dr. Long at [facility] ter for coronary artery disease, who had a CABG in 1995 and a stent many years ago. SOCIAL HISTORY: Denies smoking. Denies any history of alcohol abuse. CURRENT MEDICATIONS: The patient is taking Aldactone 25 mg daily, Amaryl 2 mg daily, doxycycline 200 mg daily. REVIEW OF SYSTEMS: As per HPI. PHYSICAL EXAMINATION: VITAL SIGNS: Temperature afebrile, heart rate 70, blood pressure 123/69. HEENT: PERRLA. Extraocular muscles intact. NECK: Supple. No carotid bruits. No thyromegaly. CHEST: Clear to auscultation. HEART: S1, S2 regular. ABDOMEN: Soft. EXTREMITIES: Clubbing, cyanosis negative. WBC 6.3, hemoglobin 11.5, hematocrit 35.9, platelet count 169. Chemistry shows sodium 135, potassium 4.2, chloride 99, carbon dioxide 25, anion gap of 15, BUN 13, creatinine 0.7. Troponin 0.04, 0.04. EKG showed a V-paced rhythm. IMPRESSION: Recurrent ventricular tachycardia, coronary artery disease, coronary artery bypass graft , diabetes, hypertension, hyperlipidemia, status post percutaneous transluminal coronary angioplasty. RECOMMENDATION: We will do the cardiac catheterization. Load with 300 Plavix. Continue amiodarone. Continue p.o. amiodarone. Keep n.p.o. Discussed with the , Mrs. Abdullahi, on telephone number [phone], agreed, will proceed for cardiac catheterization. Further recommendation after the ca rdiac catheterization. We will follow with you. Thank you, Dr. Rosa, for providing us the opportunity in taking care of the patient. Carley Nguyen MD cc: [id number] TT: 09/14/2016 09:59:00 Confirmation # [id number] Dictation # [id number]
--- NOTE | 2016-09-14 10:22 | PN ---
DATE: 09/14/2016 A 61-year-old male with history of non-insulin diabetes mellitus, CAD, peripheral vascular d isease, status post stent, status post arterial stents of the legs and coronary stents, history of pa cemaker and defibrillator, mild hypertension and hypercholesterolemia. The patient was admitted with defibrillator discharges, seen in consultation with Dr. Shankar, and also the patient had elevated fe sylvia and chills and cough with a normal chest x-ray. He is on IV antibiotics. He was seen by Dr. Ronal coburn for infectious disease. LABORATORY DATA: Blood sugars are controlled at 92. His troponins are indeterminate at 0.04. His p rocalcitonin was 0.16 indeterminate. Otherwise laboratory data were unremarkable. He did have a CT of the chest. The chest x-ray did not show any infiltrate. The CT of the chest shows scattered, hazy centrilobular nodules with tree-in-bud opacities in the mid and lower lungs suspicious for infectious process. There is a small airspace consolidation consiste nt with a small multifocal pneumonia, and mildly enlarged lymph nodes. Otherwise unremarkable. The patient has less cough. VITAL SIGNS: Temperature has been trending down. He is down to 99.3 today. Blood pressure is 108/6 8. Pulse is 68. There are no further discharges from his device. He will possibly need a DUTCH or at least an echo to rule out myocarditis. PLAN: Plan is to continue IV antibiotics, observation at this point, bronchodilators, and pulmonary toilet. Praneeth Rosa MD cc: [id number] TT: 09/14/2016 10:22:06 Confirmation # [id number] Dictation # [id number] glenna
[2016-09-14] MEDS ORDERED: Midazolam 2 MG/2 ML VIAL ONE (12:28)
[2016-09-14] MEDS ORDERED: Lidocaine 2% Inj (20ml) ONE (12:28)
[2016-09-14] MEDS ORDERED: Iodixanol 320 MG/ML 200 ML BOTTLE IV ONE (12:30)
[2016-09-14] MEDS ORDERED: Nitroglycerin 50mg in D5W 250 ML IV ONE (12:30)
[2016-09-14] MEDS ORDERED: Bacitracin 500 Units/gm Oint Foilpak UD TOP ONE (14:02)
[2016-09-14] MEDS ORDERED: Sodium Chloride 0.9% 1,000 ML IV SCH (14:15)
[2016-09-14] MEDS ORDERED: Bacitracin 500 Units/gm Oint Foilpak UD ONE (16:54)
--- NOTE | 2016-09-14 17:25 | CARD ---
APPROVED REPORT Procedure(s) performed: Left Heart Catheterization HARKINS Angiogram SVG Angiogram HISTORY The patient is a 61 year-old male with a history of : hypertension , previous CABG (The CABG date was 1994), dyslipidemia , Ischemic CMP, S/P AICD, admitted with VT time three and pneumonia. INDICATION The indication(s) include : arrhythmia, VT times three. CASE TECHNIQUE The patient was brought urgently to the Cardiac Catheterization Laboratory in a fasting state and was prepped and draped in a sterile manner. The left wrist was infiltrated with 2% Lidocaine subcutaneous anesthesia. A Radial sheath sheath was inserted into the left radial artery without difficulty. Coronary angiography was performed using coronary diagnostic catheters. The left coronary system was accessed and visualized with a Diagnostic JL3.5, 5Fr catheter. The right coronary system was accessed and visualized with a Diagnostic JR4.5FR catheter. The left ventricle was accessed and visualized with a Pigtail catheter. The left internal mammary artery was accessed and visualized with a Diagnostic HARKINS cath, 6 Fr catheter. The saphenous vein graft was accessed and visualized with a Multipurpose 6Fr catheter. Left ventricular/Aortic Valve gradient assessed on pullback. Left ventriculogram was performed in BAHENA projection. Closure device was deployed with a Fr TR band without any complications. The patient tolerated the procedure well and there were no complications associated with the procedure. Vessel Analysis The patient's coronary anatomy is right dominant. The left main coronary artery is a large size vessel without significant stenosis. The left main bifurcates to the left anterior descending and circumflex. The left anterior descending artery is a medium size vessel with diffuse calcification noted throughout this vessel and with significant stenosis. There is a 100% stenosis in the mid segment. The first diagonal branch is a medium size vessel with diffuse calcification noted throughout this vessel and without significant stenosis. There is a 50% stenosis in the ostial segment. The circumflex artery is a medium size vessel with diffuse calcification noted throughout this vessel and without significant stenosis. There is a 40-50% stenosis in the mid segment. The first obtuse marginal branch is a medium size vessel with diffuse calcification noted throughout this vessel and without significant stenosis. The second obtuse marginal branch is a medium size vessel with diffuse calcification noted throughout this vessel and without significant stenosis. The right coronary artery is a medium size vessel with diffuse calcification noted throughout this vessel and with significant stenosis. There is a 100% stenosis in the proximal segment. Collateral fron Cx to RCA The left internal mammary artery to the mid left anterior descending artery segment is patent . The saphenous vein graft to the distal right coronary artery occluded . The saphenous vein graft to the mid circumflex artery segment ( probably) Occluded . Left Ventricle The left ventricle is enlarged in size with Severe decrease contractility. Ischemic cardiomyopathy. The left ventricular ejection fraction is estimated to be 15-20%. The left ventricular end diastolic pressure is 30-35 mmHg. There was no gradient across the aortic valve upon pullback. Conclusion Severe Triple Vessel Disease Ischemic CMP. EF-15-20%, EDP-30-35 mmof Hg. Hx of quadraple CABG Only HARKINS to Mid :LAD patent, All other grafts occluded Recommendations Aggressive Medical TherapyCardiac Risk Reduction Program Weight Loss Reduction Program Add Dig and amiodarone Will start Iv Primacor for 24-48 hours with IV diuretics. would consider ENTEREST po upon DC . Continue KELSEA, Coreg and Diuretics. CC; Drs. Rosa / Mercedes.
[2016-09-14] MEDS: Milrinone 20mg/100ml D5W 100 ML IV PRN (18:15)
--- NOTE | 2016-09-14 18:55 | CARD ---
APPROVED REPORT EXAM: Two-dimensional and M-mode echocardiogram with Doppler and color Doppler. INDICATION Chest Pain 2D DIMENSIONS Left Atrium (2D)5.4 (1.6-4.0cm)IVSd1.0 (0.7-1.1cm) LVDd5.7 (3.9-5.9cm)PWd0.8 (0.7-1.1cm) LVDs5.3 (2.5-4.0cm)FS (%) 7.0 % LVEF (%)15.3 (>50%) M-Mode DIMENSIONS Aortic Root2.70 (2.2-3.7cm)Aortic Cusp Exc.1.20 (1.5-2.0cm) Aortic Valve AoV Peak Cqduyhtm140.0cm/Wendy Peak GR.11mmHg Mitral Valve MV E Jpcsjaao249.0cm/sMV A Dxrxcpqo14.4cm/sE/A ratio2.4 TDI E/Lateral E'0.0E/Medial E'0.0 Tricuspid Valve TR Peak Barfcqim436et/sRAP [id number] Peak Gr.67mmHg [id number] LEFT VENTRICLE The Left Ventricle is moderately dilated. There is normal left ventricular wall thickness. The systolic function is severely impaired.EF=15-20% There is moderate to severe hypokinesis in the apical anterior wall. There is moderate to severe global hypokinesis of the left ventricle. Transmitral Doppler flow pattern is Grade II-pseudonormal filling dynamics. No left ventricle thrombus noted on this study. There is no ventricular septal defect visualized. There is no left ventricular aneurysm. There is no mass noted in the left ventricle. RIGHT VENTRICLE The right ventricle is mildly dilated. There is normal right ventricular wall thickness. Systolic function is mildly to moderately reduced. There is a pacemaker lead in the right ventricle. ATRIA The left atrium is moderately dilated. The right atrium is borderline dilated. There is a catheter/pacemaker lead seen in the right atrium. The interatrial septum is intact with no evidence for an atrial septal defect. AORTIC VALVE The aortic valve is thickened but opens well. There is trace aortic regurgitation. There is no aortic valvular stenosis. MITRAL VALVE The mitral valve is thickened but opens well. Mitral regurgitation is mild to moderate. There is no mitral valve stenosis. There is no evidence of mitral valve prolapse. TRICUSPID VALVE The tricuspid valve leaflets are thickened , but open well. There is moderate tricuspid regurgitation.RVSP-77 mmof HG. There is moderate to severe pulmonary hypertension. There is no tricuspid valve stenosis. There is no tricuspid valve prolapse or vegetation. PULMONIC VALVE The pulmonic valve is mildly thickened. There is mild pulmonic valvular regurgitation. There is no pulmonic valvular stenosis. GREAT VESSELS The aortic root is normal in size. The ascending aorta is normal in size. The pulmonary artery is normal. The IVC is dilated. PERICARDIAL EFFUSION There is no pleural effusion. There is no pericardial effusion. <Conclusion> Four chamber dilatation, C/W CMP. EF-15-20% There is trace aortic regurgitation. Mitral regurgitation is mild to moderate. There is moderate tricuspid regurgitation.RVSP-77 mmof HG. There is moderate to severe pulmonary hypertension. The IVC is dilated. There is no pericardial effusion. There is a pacemaker lead in the right ventricle. No Vegetation or thrombus noted.
--- NOTE | 2016-09-14 23:10 | CP.PCM.PN ---
Subjective - Date & Time of Evaluation Date of Evaluation: 09/14/16 Time of Evaluation: 23:10 - Subjective Subjective: Patient was seen at bedside for his complaint of nausea. Has no other complaints. Denies headache, dizziness, chest pain,sob. This 61 year old male was admitted dry cough, chills , low grade fever , PNA. Has PMH of HTN, CAD, S/P AICD . Objective - Vital Signs/Intake and Output Vital Signs (last 24 hours): Temp Pulse Resp BP Pulse Ox 98.2 F 73 20 122/71 100 09/14/16 20:00 09/14/16 22:00 09/14/16 20:00 09/14/16 20:00 09/14/16 20:00 Intake and Output: 09/14/16 09/15/16 18:59 06:59 Intake Total 800 120 Output Total 1150 Balance -350 120 - Medications Medications: Current Medications Acetaminophen (Tylenol 325mg Tab) 650 mg PO Q4H PRN PRN Reason: Fever >100.5 F Last Admin: 09/13/16 15:06 Dose: 650 mg Amiodarone HCl (Cordarone) 400 mg PO TID [facility] Stop: 09/16/16 23:59 Last Admin: 09/14/16 18:10 Dose: 400 mg Amiodarone HCl (Cordarone) 200 mg PO DAILY [facility] Aspirin (Ecotrin) 81 mg PO DAILY [facility] Last Admin: 09/14/16 09:43 Dose: 81 mg Atorvastatin Calcium (Lipitor) 10 mg PO DIN [facility] Last Admin: 09/14/16 18:14 Dose: 10 mg Digoxin (Lanoxin) 0.25 mg PO 1400 [facility] Doxycycline Hyclate (Doryx) 100 mg PO Q12 [facility] PRN Reason: Protocol Stop: 09/22/16 22:01 Last Admin: 09/14/16 22:15 Dose: 100 mg Furosemide (Lasix) 40 mg PO DAILY [facility] Guaifenesin (Robitussin) 100 mg PO Q4H PRN PRN Reason: Cough Last Admin: 09/13/16 21:27 Dose: 100 mg Home Med (Home Med) 1 unit PO DAILY [facility] Ceftriaxone Sodium (Rocephin 1 Gram Ivpb) 100 mls @ 100 mls/hr IVPB DAILY [facility] PRN Reason: Protocol Stop: 09/22/16 12:19 Last Admin: 09/14/16 09:45 Dose: 100 mls/hr Milrinone Lactate/Dextrose (Primacor 20mg/100ml D5w) 100 mls @ 4.983 mls/hr IV .Q20H5M PRN; Protocol; 0.2 MCG/KG/MIN PRN Reason: TITRATE PER MD ORDER Stop: 09/16/16 07:00 Last Admin: 09/14/16 18:15 Dose: 4.983 mls/hr Insulin Human Lispro (Humalog Low) 0 units SC [facility] PRN Reason: Protocol Last Admin: 09/14/16 22:16 Dose: Not Given Lisinopril (Zestril) 5 mg PO DAILY [facility] Last Admin: 09/14/16 09:47 Dose: 5 mg Magnesium Chloride (Slow-Mag) 64 mg PO DAILY [facility] Last Admin: 09/14/16 09:46 Dose: 64 mg Ondansetron HCl (Zofran Inj) 4 mg IVP ONCE ONE Stop: 09/14/16 23:10 Oseltamivir Phosphate (Tamiflu Cap) 75 mg PO BID [facility] PRN Reason: Protocol Stop: 09/18/16 18:01 Last Admin: 09/14/16 18:17 Dose: 75 mg Pantoprazole Sodium (Protonix Ec Tab) 20 mg PO 0730 [facility] Last Admin: 09/14/16 09:45 Dose: 20 mg Spironolactone (Aldactone) 25 mg PO DAILY [facility] Last Admin: 09/14/16 09:36 Dose: 25 mg - Constitutional Appears: Well, No Acute Distress - Head Exam Head Exam: ATRAUMATIC, NORMAL INSPECTION, NORMOCEPHALIC - Eye Exam Eye Exam: Normal appearance - ENT Exam ENT Exam: Normal External Ear Exam - Neck Exam Neck Exam: Normal Inspection - Respiratory Exam Respiratory Exam: NORMAL BREATHING PATTERN - Cardiovascular Exam Cardiovascular Exam: absent: JVD - GI/Abdominal Exam GI & Abdominal Exam: absent: Distended - Rectal Exam Rectal Exam: Deferred - Extremities Exam Extremities Exam: Normal Inspection - Back Exam Back Exam: NORMAL INSPECTION - Neurological Exam Neurological Exam: Alert, Oriented x3 - Psychiatric Exam Psychiatric exam: Normal Affect, Normal Mood - Skin Skin Exam: Normal Color Assessment and Plan - Assessment and Plan (Free Text) Assessment: A/P:Nausea. PNA. History CAD. History AICD. Hypertension. Zofran 4 mg IV stat.
--- NOTE | 2016-09-15 00:55 | CON ---
DATE: 09/14/2016 CONSULTATION ELECTROPHYSIOLOGY REASON FOR EVALUATION: 1. AICD shocks. 2. Ventricular tachycardia. 3. Dilator cardiomyopathy. The patient is a very pleasant 61-year-old male with past medical history significant for is chemic cardiomyopathy, hypertension, diabetes and status ____ initially in 2004 followed by pulse gen erator replacement in 2014 who presents with low grade fever, cough over the course of 3 days and had defibrillator discharging x 3 in the last few days. The patient is followed by Dr. Rudi Kirk and had one remote episode of firing as per the patient and his at the bedside, but has been a few years ago. Of late, the defibrillator discharging on this admission has been the first time in a long time. Device interrogation did confirm the patient had true episodes of ventricular tachycardi a which failed to respond to antitachycardia pacing, ultimately required a 5 Joule shock, which was s uccessful on each occasion. The interrogation of his device reveals a normal functioning Bromiuma Quad XT device. This is a [employer] device, serial [id number]. Interrogation reveals normal functioning device, normal thresholds. Th ere does appear to be some degree of noise on the atrial channel; however, this does not result in un km or oversensing. There does appear to be a true episode of ventricular tachycardia at 180 beats p er minute, which falls into the VT zone. As mentioned previously, ATP failed to convert the patient. Ultimately, he did require a 5 Joule shock to cardiovert the patient. In terms of reprogramming, t he patient was reprogrammed to increase ATP in an effort to get into the tachycardia and perhaps obvi ate the need for defibrillator shocks; albeit, the patient is only programmed for 5 Joules. 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 The patient was initiated on IV amiodarone and subsequently converted to p.o. am iodarone 200 mg p.o. b.i.d. At this point, he appears to be tolerating it and appears to be feeling well. In addition, the patient underwent cardiac catheterization. MEDICATIONS: At the time of admission, Aldactone 25 mg p.o. daily, Amaryl 2 mg p.o. daily, doxycycli ne 100 mg p.o. b.i.d., aspirin 81 mg p.o. daily, Glucophage 1 gram twice a day, Januvia 50 mg b.i.d., Lipitor 10 mg p.o. daily, Rocephin 1 gram daily, Tamiflu 1 capsule twice a day, vancomycin 1 gram IV daily, Zestril 5 mg p.o. daily, Zetia 10 mg p.o. daily. REVIEW OF SYSTEMS: Denies any generalized weakness. Denies dizziness, any prior AICD shock, no sync ope, dizziness, lightheadedness. No fevers, chills, nausea, vomiting, diarrhea, heat or cold intoler ance, generalized or focal weakness, paroxysmal nocturnal dyspnea or orthopnea, polydipsia, or polyph agia. On review of 12-lead EKG, it shows normal sinus rhythm with an A-sensed V-paced rhythm. QT, QTC is 4 32 and 540 respectively. Keep in mind, does have a paced rhythm with a QRS that is close to 180 mill iseconds in and of itself. PHYSICAL EXAMINATION: VITAL SIGNS: Pulse rate is 73, blood pressure is 99/65, respirations of 20, 100% saturation on room air. GENERAL: He is a very pleasant appearing Hebrew male in no acute distress. Able to speak in comple te sentences. HEENT: Head is normocephalic, atraumatic. There is no frederic facial asymmetry. Mucous membranes emil ear moist. NECK: Supple, no jugular venous distention, no carotid bruits. CHEST: Clear to auscultation bilaterally. CARDIOVASCULAR: Regular rate and rhythm. S1, S2. PMI is displaced past the midclavicular line. ABDOMEN: Soft, obese, nontender. Positive for bowel sounds. EXTREMITIES: No cyanosis, clubbing or edema is noted. MEDICATIONS: Include the following: Amiodarone 400 mg 3 times a day, aspirin 81 mg p.o. daily, ator vastatin 10 mg p.o. daily, ceftriaxone 100 mg IV piggyback daily, digoxin 0.25 mg p.o. daily, doxycyc line 100 mg every 12 hours, furosemide 40 mg p.o. daily, Robitussin 100 mg p.o. every 4 hours p.r.n. cough, Zestril/lisinopril 5 mg p.o. daily, magnesium chloride, milrinone, Tamiflu, Aldactone 25 mg p. o. daily. ASSESSMENT AND PLAN: 1. AICD implantation with a normal functioning biventricular device. At this point, patient receive d appropriate therapy, successful at 5 Joule shock. 2. Ventricular tachycardia for which patient is currently undergoing amiodarone loading. Will travis nue amiodarone at this point. I have discussed amiodarone in terms of its potential side effects wit h the patient and his at length. He was instructed to follow up closely with his primary physic jaja/supervisor plastering in regards to surveillance of thyroid, liver, optic lens, and lung standpoint. The patient is now aware. 3. Dilated cardiomyopathy. The patient's volume status is being optimized as we speak. He is to fo llow up closely with his primary supervisor plastering. It was also stressed that he needs to follow up with Dr. Rudi Kirk for routine device track. Thank you for allowing me to participate in the care of your patient. Please do not hesitate to call for any questions in regards to his care. Kalyan Marshall MD cc:Jarvis Davison MD; Praneeth Rosa MD [phone] TT: 09/15/2016 00:54:50 Confirmation # [id number] Dictation # [id number] mn
[2016-09-15] MEDS: Insulin Lispro (humaLOG) LOW Coverage SC SCH ×4 (07:49→22:30)
[2016-09-15] MEDS: Pantoprazole 20 mg EC Tab PO SCH (07:51)
[2016-09-15 09:07] LABS: ADD MANUAL DIFF? NO
[2016-09-15 09:13] LABS: BASO # 0.01 K/mm3 (0.0-2.0); BASO % 0.1 % (0.0-3.0); EOS % 0.4 % (1.5-5.0); GRAN # 4.71 (1.4-6.5); GRAN % 64.2 % (50.0-68.0); HEMATOCRIT 36.7 % (42.0-52.0); LYMPH # 1.8 (1.2-3.4); LYMPH % 25.1 % (22.0-35.0); MEAN CELL VOLUME 75.4 fL (80.0-105.0); MEAN CORPUSCULAR HEMOGLOBIN 25.1 pg (25.0-35.0); MEAN CORPUSCULAR HGB CONC 33.2 g/dl (31.0-37.0); MEAN PLATELET VOLUME 10.1 fl (7.0-11.0); MONO # 0.8 (0.1-0.6); MONO % 10.2 % (1.0-6.0); PLATELET COUNT 218 10^3/uL (120.0-450.0); RED CELL DISTRIBUTION WIDTH 14.6 % (11.5-14.5); WHITE BLOOD COUNT 7.3 10^3/ul (4.5-11.0)
[2016-09-15 09:44] LABS: ALKALINE PHOSPHATASE 69 U/L (38-133); ALT/SGPT 34 U/L (7-56); AST/SGOT 39 U/L (15-59); BILIRUBIN,TOTAL 1.1 mg/dL (0.2-1.3); BLOOD UREA NITROGEN 18 mg/dL (7-21); CALCIUM 8.9 mg/dL (8.4-10.5); CARBON DIOXIDE 26 mmol/L (21-33); CHLORIDE 99 mmol/L (95-110); GFR AFRICAN-AMERICAN > 60; GLUCOSE,RANDOM 111 mg/dL (70-110); MAGNESIUM 2.1 mg/dL (1.7-2.2); PHOSPHOROUS 3.4 mg/dL (2.5-4.5); POTASSIUM 3.9 mmol/L (3.6-5.0); SODIUM 136 mmol/L (132-148); TOTAL PROTEIN 7.2 g/dL (5.8-8.3)
[2016-09-15] MEDS: Magnesium Chloride 64 mg ER Tab PO SCH (09:58)
[2016-09-15] MEDS: COREG 40 MG PO SCH ×2 (10:00→18:09)
[2016-09-15] MEDS: cefTRIAXone 1 gm 100 ML IVPB SCH (10:02)
--- NOTE | 2016-09-15 11:03 | PN ---
DATE: 09/15/2016 A 61-year-old male with a history of insulin-dependent diabetes mellitus, CAD, status post d efibrillator and pacemaker. The patient admitted to the hospital with fever and chills, cough, sputu m production, and defibrillator dysfunction with multiple firings. The patient was taken to labor utilization superintendent yesterday by Dr. Nguyen, was found to have severe hypokinesis and CAD with patent vessels. The patien t has ejection fraction between 15% and 20%. The patient was on Primacor, amiodarone, and digoxin. He is being treated for a lower respiratory tract infection. PHYSICAL EXAMINATION: VITAL SIGNS: He is afebrile today. Vital signs are stable. He is still coughing. LUNGS: He still has rhonchi and rales at both lungs. HEART: Regular with systolic ejection murmur at the left sternal border. EXTREMITIES: Without cyanosis, clubbing, or edema. IMPRESSION: Case was discussed with Dr. Nguyen for possible evaluation for heart transplant in the juni r future. The patient's ejection fraction will be reevaluated by Dr. Long after the patient finishes his cours e of ____ and IV antibiotics. PLAN: At this point is to continue IV antibiotics and close cardiac monitoring. Praneeth Rosa MD cc: [id number] TT: 09/15/2016 11:03:24 Confirmation # [id number] Dictation # [id number]
--- NOTE | 2016-09-15 12:52 | CP.PCM.PN ---
Subjective - Date & Time of Evaluation Date of Evaluation: 09/15/16 Time of Evaluation: 08:55 - Subjective Subjective: Patient is comfortable in bed, breathing better. No acute events overnight, no fevers, much improved cough and breathing much better. Objective - Vital Signs/Intake and Output Vital Signs (last 24 hours): Temp Pulse Resp BP Pulse Ox 97.1 F L 77 20 112/64 98 09/15/16 05:42 09/15/16 10:01 09/15/16 05:42 09/15/16 10:01 09/15/16 05:42 Intake and Output: 09/15/16 09/15/16 06:59 18:59 Intake Total 175 Balance 175 - Medications Medications: Current Medications Acetaminophen (Tylenol 325mg Tab) 650 mg PO Q4H PRN PRN Reason: Fever >100.5 F Last Admin: 09/13/16 15:06 Dose: 650 mg Amiodarone HCl (Cordarone) 400 mg PO TID [facility] Stop: 09/16/16 23:59 Last Admin: 09/15/16 10:01 Dose: 400 mg Amiodarone HCl (Cordarone) 200 mg PO DAILY [facility] Aspirin (Ecotrin) 81 mg PO DAILY [facility] Last Admin: 09/15/16 09:59 Dose: 81 mg Atorvastatin Calcium (Lipitor) 10 mg PO DIN [facility] Last Admin: 09/14/16 18:14 Dose: 10 mg Digoxin (Lanoxin) 0.25 mg PO 1400 [facility] Doxycycline Hyclate (Doryx) 100 mg PO Q12 [facility] PRN Reason: Protocol Stop: 09/22/16 22:01 Last Admin: 09/15/16 09:59 Dose: 100 mg Furosemide (Lasix) 40 mg PO DAILY [facility] Last Admin: 09/15/16 09:59 Dose: 40 mg Furosemide (Lasix) 40 mg IV ONCE ONE Stop: 09/15/16 17:01 Guaifenesin (Robitussin) 100 mg PO Q4H PRN PRN Reason: Cough Last Admin: 09/13/16 21:27 Dose: 100 mg Home Med (Home Med) 1 unit PO DAILY [facility] Ceftriaxone Sodium (Rocephin 1 Gram Ivpb) 100 mls @ 100 mls/hr IVPB DAILY [facility] PRN Reason: Protocol Stop: 09/22/16 12:19 Last Admin: 09/15/16 10:02 Dose: 100 mls/hr Milrinone Lactate/Dextrose (Primacor 20mg/100ml D5w) 100 mls @ 4.983 mls/hr IV .Q20H5M PRN; Protocol; 0.2 MCG/KG/MIN PRN Reason: TITRATE PER MD ORDER Stop: 09/16/16 07:00 Last Admin: 09/14/16 18:15 Dose: 4.983 mls/hr Insulin Human Lispro (Humalog Low) 0 units SC [facility] PRN Reason: Protocol Last Admin: 09/15/16 07:49 Dose: Not Given Lisinopril (Zestril) 5 mg PO DAILY [facility] Last Admin: 09/15/16 09:59 Dose: 5 mg Magnesium Chloride (Slow-Mag) 64 mg PO DAILY [facility] Last Admin: 09/15/16 09:58 Dose: 64 mg Oseltamivir Phosphate (Tamiflu Cap) 75 mg PO BID [facility] PRN Reason: Protocol Stop: 09/18/16 18:01 Last Admin: 09/15/16 09:58 Dose: 75 mg Pantoprazole Sodium (Protonix Ec Tab) 20 mg PO 0730 [facility] Last Admin: 09/15/16 07:51 Dose: 20 mg Potassium Chloride (K-Dur 20 Meq Er Tab) 20 meq PO ONCE ONE Stop: 09/15/16 17:01 Spironolactone (Aldactone) 25 mg PO DAILY [facility] Last Admin: 09/15/16 09:59 Dose: 25 mg - Labs Labs: 09/15/16 08:50 09/15/16 08:50 - Constitutional Appears: Non-toxic, No Acute Distress - Head Exam Head Exam: NORMAL INSPECTION - ENT Exam ENT Exam: Mucous Membranes Moist - Neck Exam Neck Exam: absent: Lymphadenopathy, Meningismus - Respiratory Exam Respiratory Exam: Decreased Breath Sounds (at the bases with crackles noted) - Cardiovascular Exam Cardiovascular Exam: +S1, +S2 - GI/Abdominal Exam GI & Abdominal Exam: Soft. absent: Tenderness Assessment and Plan - Assessment and Plan (Free Text) Plan: Assessment Consider sepsis secondary to bilateral lower lobe, multifocal community- acquired pneumonia, clinically improving R/O systemic viral illness with Influenza CAD S/P pacemaker placement HTN DM obesity with BMI 34 peripheral arterial disease Plan Continue Rocephin, Doxycycline and Tamiflu (day 3) - will aim for 5-7 days of antibiotics; blood and sputum cx are negative; reviewed CT chest which multiple areas of infiltrates in the lower lobes; PCT is 0.16; so far no evidence of MRSA , will d/c Vancomycin; by tomorrow, we may be able to switch patient to PO antibiotics Will continue to monitor clinical response
[2016-09-15] MEDS: Digoxin 250 mcg (0.25 mg) Tab PO SCH (13:23)
--- NOTE | 2016-09-15 13:43 | PN ---
DATE: 09/15/2016 REASON FOR CONSULTATION AND FOLLOWUP: Ventricular tachycardia, coronary artery disease, CABG, admitt ed with possible pneumonia versus CHF. BRIEF CLINICAL HISTORY: This is a 61-year-old male with past medical history significant for hyperte nsion, diabetes, coronary artery disease status post coronary artery bypass quadruple in 1995, being followed by Dr. Long, admitted with 3 episodes of ventricular tachycardia, defibrillator went off. He was initially admitted with pneumonia yesterday and the patient underwent cardiac catheterization that revealed patent HARKINS to LAD, saphenous graft occluded. Discussed with Dr. Long the patient ___ __back, decreased ejection fraction of 15% to 20%. The patient had echocardiography done yesterday t hat showed 4-chamber dilatation, ejection fraction 15% to 20%, pulmonary hypertension, and mild to mo derate mitral and moderate tricuspid regurgitation. The patient started IV Lasix as well as Lacey macor for 24-48 hours, started on amiodarone loading for VT. The patient was also seen by Dr. Farnsworth rt for AICD, they are following and he is seen by Dr. Marshall. I discussed at length this morning wit h Dr. Rosa. PHYSICAL EXAMINATION: VITAL SIGNS: Temperature afebrile, heart rate 77, blood pressure 112/64. HEENT: PERRLA. Extraocular muscles intact. NECK: Supple. No carotid bruits. No thyromegaly. CHEST: Clear to auscultation. HEART: S1, S2 regular. ABDOMEN: Soft. EXTREMITIES: Clubbing and cyanosis negative. LABORATORY DATA: Blood workup as follows: WBC , hemoglobin 12.2, hematocrit 36.7, platelet cou nt 218. Chemistry shows sodium 130, potassium 3.9, chloride 99, carbon dioxide 26, anion gap of 15, BUN 18, creatinine 0.8. IMPRESSION: Decompensated congestive heart failure, acute on chronic systolic dysfunction, ejection fraction 15% to 20%, coronary artery disease, status post CABG in 1995, status post percutaneous pena sluminal coronary angioplasty in the past, status post cardiac catheterization, patent HARKINS to LAD, _ ____ disease, occluded graft, severe ischemic cardiomyopathy, status post ventricular tachycardia, di abetes, hypertension, hyperlipidemia. RECOMMENDATION: Continue amio loading, discontinue IV amio already. Continue spironolactone. Matti nue gentle diuretics. Continue Primacor for the next 24 hours. Continue Lasix. Discontinue Plavix now. It does need to be continued and continue IV antibiotic for possible pneumonia. Continue lisin opril started. The patient is already on Coreg from home. Upon discharge, we will put a s blood pressure is tolerated. Possible discharge in a day or two. Discussed with the patient, behzad ent's and Dr. Rosa. Will repeat TSH check tomorrow. We will follow with you. Thank you, Dr. Rosa, for providing the opportunity in taking care of the patient. Carley Nguyen MD cc: [id number] TT: 09/15/2016 12:41:54 Confirmation # [id number] Dictation # [id number] juan
[2016-09-15] MEDS ORDERED: Potassium Chloride 20 mEq ER Tab PO ONE (17:00)
[2016-09-15] MEDS: Milrinone 20mg/100ml D5W 100 ML IV PRN (18:10)
--- NOTE | 2016-09-15 18:58 | RAD ---
HISTORY: F/U pneumonia and compare COMPARISON: CT thorax from 09/14 2016 TECHNIQUE: Chest PA and lateral FINDINGS: LUNGS: There is no focal consolidation. There is mild pulmonary venous congestion. PLEURA: No significant pleural effusion identified. No pneumothorax apparent. CARDIOVASCULAR: There is moderate cardiomegaly. Status post CABG. There is stable position of a left-sided dual lead pacing device. OSSEOUS STRUCTURES: No significant abnormalities. VISUALIZED UPPER ABDOMEN: Normal. OTHER FINDINGS: None. IMPRESSION: No lobar pneumonia upper. Moderate cardiomegaly and mild pulmonary venous congestion.
[2016-09-16] MEDS: guaiFENesin 100 mg/5 ml Syrup UD PO PRN ×2 (00:55→23:14)
[2016-09-16 07:14] LABS: ADD MANUAL DIFF? NO
[2016-09-16 07:23] LABS: BASO # 0.03 K/mm3 (0.0-2.0); BASO % 0.5 % (0.0-3.0); EOS # 0.1 (0.0-0.7); EOS % 1.3 % (1.5-5.0); GRAN # 4.13 (1.4-6.5); GRAN % 66.5 % (50.0-68.0); HEMATOCRIT 34.3 % (42.0-52.0); LYMPH # 1.4 (1.2-3.4); LYMPH % 22.3 % (22.0-35.0); MEAN CELL VOLUME 75.1 fL (80.0-105.0); MEAN CORPUSCULAR HEMOGLOBIN 25.2 pg (25.0-35.0); MEAN CORPUSCULAR HGB CONC 33.5 g/dl (31.0-37.0); MEAN PLATELET VOLUME 10.1 fl (7.0-11.0); MONO # 0.6 (0.1-0.6); MONO % 9.4 % (1.0-6.0); PLATELET COUNT 222 10^3/uL (120.0-450.0); RED CELL DISTRIBUTION WIDTH 14.5 % (11.5-14.5); WHITE BLOOD COUNT 6.2 10^3/ul (4.5-11.0)
[2016-09-16 07:37] LABS: ALKALINE PHOSPHATASE 61 U/L (38-133); ALT/SGPT 28 U/L (7-56); AST/SGOT 33 U/L (15-59); BLOOD UREA NITROGEN 18 mg/dL (7-21); CALCIUM 8.7 mg/dL (8.4-10.5); CARBON DIOXIDE 28 mmol/L (21-33); CHLORIDE 100 mmol/L (98-107); GFR AFRICAN-AMERICAN > 60; GLUCOSE,RANDOM 128 mg/dL (70-110); MAGNESIUM 1.9 mg/dL (1.7-2.2); PHOSPHOROUS 3.4 mg/dL (2.5-4.5); POTASSIUM 3.7 mmol/L (3.6-5.0); SODIUM 137 mmol/L (132-148); TOTAL PROTEIN 6.7 g/dL (5.8-8.3)
[2016-09-16] MEDS: Insulin Lispro (humaLOG) LOW Coverage SC SCH ×4 (07:54→23:12)
[2016-09-16] MEDS: Pantoprazole 20 mg EC Tab PO SCH (08:06)
--- NOTE | 2016-09-16 09:20 | PN ---
DATE: 09/16/2016 A 61-year-old white male with severe ischemic hypokinesis and congestive cardiomyopathy with ejection fraction less than 20%, multiple episodes of defibrillator discharge, bronchitis and pneumonia, sust ained wheezing and rhonchi. Recent chest x-ray is clear. His CT showed episodes of multifocal pneum onia. The patient is afebrile. He is on IV antibiotics. He will start some bronchodilation for the wheezing. He has no further discharges from his defibrillator. His catheterization was recently do ne. The patient will need possible evaluation for cardiac transplant in the near future. PHYSICAL EXAMINATION: Unchanged. REVIEW OF SYSTEMS: Remarkable only for shortness of breath, cough, sputum production and wheezing. The patient will . We will restart him on DuoNeb and continue IV antibiotics and possibly add a small dose of steroids. Praneeth Rosa MD cc: [id number] TT: 09/16/2016 09:19:40 Confirmation # [id number] Dictation # [id number] en
[2016-09-16] MEDS: Magnesium Chloride 64 mg ER Tab PO SCH (09:32)
[2016-09-16] MEDS: COREG 40 MG PO SCH (09:34)
[2016-09-16] MEDS: cefTRIAXone 1 gm 100 ML IVPB SCH (09:35)
--- NOTE | 2016-09-16 13:38 | CP.PCM.PN ---
Subjective - Date & Time of Evaluation Date of Evaluation: 09/16/16 Time of Evaluation: 08:55 - Subjective Subjective: No acute events overnight, no fevers, breathing better, no more cough, no diarrhea. Objective - Vital Signs/Intake and Output Vital Signs (last 24 hours): Temp Pulse Resp BP Pulse Ox 99.4 F 63 18 124/72 95 09/16/16 11:53 09/16/16 11:53 09/16/16 11:53 09/16/16 11:53 09/16/16 06:00 Intake and Output: 09/16/16 09/16/16 06:59 18:59 Intake Total 712 112 Output Total 600 0 Balance 112 112 - Medications Medications: Current Medications Acetaminophen (Tylenol 325mg Tab) 650 mg PO Q4H PRN PRN Reason: Fever >100.5 F Last Admin: 09/13/16 15:06 Dose: 650 mg Albuterol/Ipratropium (Duoneb 3 Mg/0.5 Mg (3 Ml) Ud) 3 ml [facility] [id number] [facility] Amiodarone HCl (Cordarone) 400 mg PO TID [facility] Stop: 09/16/16 23:59 Last Admin: 09/16/16 09:33 Dose: 400 mg Amiodarone HCl (Cordarone) 200 mg PO DAILY [facility] Aspirin (Ecotrin) 81 mg PO DAILY [facility] Last Admin: 09/16/16 09:32 Dose: 81 mg Atorvastatin Calcium (Lipitor) 10 mg PO DIN [facility] Last Admin: 09/15/16 18:05 Dose: 10 mg Digoxin (Lanoxin) 0.25 mg PO 1400 [facility] Last Admin: 09/15/16 13:23 Dose: 0.25 mg Doxycycline Hyclate (Doryx) 100 mg PO Q12 [facility] PRN Reason: Protocol Stop: 09/22/16 22:01 Last Admin: 09/16/16 09:33 Dose: 100 mg Furosemide (Lasix) 40 mg PO DAILY [facility] Last Admin: 09/16/16 09:33 Dose: 40 mg Guaifenesin (Robitussin) 100 mg PO Q4H PRN PRN Reason: Cough Last Admin: 09/16/16 00:55 Dose: 100 mg Home Med (Home Med) 1 unit PO DAILY [facility] Last Admin: 09/16/16 09:34 Dose: 1 unit Ceftriaxone Sodium (Rocephin 1 Gram Ivpb) 100 mls @ 100 mls/hr IVPB DAILY [facility] PRN Reason: Protocol Stop: 09/22/16 12:19 Last Admin: 09/16/16 09:35 Dose: 100 mls/hr Insulin Human Lispro (Humalog Low) 0 units SC [facility] PRN Reason: Protocol Last Admin: 09/16/16 12:39 Dose: 2 units Lisinopril (Zestril) 5 mg PO DAILY [facility] Last Admin: 09/16/16 09:33 Dose: 5 mg Magnesium Chloride (Slow-Mag) 64 mg PO DAILY [facility] Last Admin: 09/16/16 09:32 Dose: 64 mg Oseltamivir Phosphate (Tamiflu Cap) 75 mg PO BID [facility] PRN Reason: Protocol Stop: 09/18/16 18:01 Last Admin: 09/16/16 09:34 Dose: 75 mg Pantoprazole Sodium (Protonix Ec Tab) 20 mg PO 0730 [facility] Last Admin: 09/16/16 08:06 Dose: 20 mg Prednisone (Prednisone Tab) 20 mg PO DAILY [facility] Last Admin: 09/16/16 09:32 Dose: 20 mg Spironolactone (Aldactone) 25 mg PO DAILY [facility] Last Admin: 09/16/16 09:33 Dose: 25 mg - Labs Labs: 09/16/16 06:30 09/16/16 06:30 - Constitutional Appears: Non-toxic, No Acute Distress - Head Exam Head Exam: NORMAL INSPECTION - Neck Exam Neck Exam: absent: Lymphadenopathy, Meningismus - Respiratory Exam Respiratory Exam: Decreased Breath Sounds (at the bases with crackles noted - there is improvement compared to previous days) - Cardiovascular Exam Cardiovascular Exam: +S1, +S2 - GI/Abdominal Exam GI & Abdominal Exam: Soft. absent: Tenderness Assessment and Plan - Assessment and Plan (Free Text) Plan: Assessment Consider sepsis secondary to bilateral lower lobe, multifocal community- acquired pneumonia, clinically improving R/O systemic viral illness with Influenza CAD S/P pacemaker placement HTN DM obesity with BMI 34 peripheral arterial disease Plan on Rocephin, Doxycycline and Tamiflu (day 4) - will aim for 5-7 days of antibiotics - will d/c Tamiflu by tomorrow, d/c rocephin today; blood and sputum cx are negative; reviewed CT chest which multiple areas of infiltrates in the lower lobes; PCT is 0.16; so far no evidence of MRSA, will d/c Vancomycin Will continue to monitor clinical response
[2016-09-16] MEDS: Albuterol-Ipratrop 3 mg / 0.5 (3 ml) UD IH SCH ×2 (13:43→19:48)
[2016-09-16 16:53] VITALS: PULSE 62
[2016-09-16] MEDS: Digoxin 250 mcg (0.25 mg) Tab PO SCH (16:53)
[2016-09-17 00:45] VITALS: RESP 18
[2016-09-17] MEDS: Albuterol-Ipratrop 3 mg / 0.5 (3 ml) UD IH SCH ×2 (01:13→08:32)
[2016-09-17 05:46] VITALS: TEMP 98.2; O2SAT 98
[2016-09-17 06:55] LABS: ADD MANUAL DIFF? NO
[2016-09-17 07:08] LABS: BASO # 0.02 K/mm3 (0.0-2.0); BASO % 0.3 % (0.0-3.0); EOS # 0.1 (0.0-0.7); EOS % 0.7 % (1.5-5.0); GRAN # 4.45 (1.4-6.5); GRAN % 61.4 % (50.0-68.0); HEMATOCRIT 35.1 % (42.0-52.0); LYMPH # 2.1 (1.2-3.4); LYMPH % 28.4 % (22.0-35.0); MEAN CORPUSCULAR HEMOGLOBIN 25.9 pg (25.0-35.0); MEAN CORPUSCULAR HGB CONC 34.5 g/dl (31.0-37.0); MEAN PLATELET VOLUME 9.9 fl (7.0-11.0); MONO # 0.7 (0.1-0.6); MONO % 9.2 % (1.0-6.0); PLATELET COUNT 237 10^3/uL (120.0-450.0); RED CELL DISTRIBUTION WIDTH 14.4 % (11.5-14.5); WHITE BLOOD COUNT 7.3 10^3/ul (4.5-11.0)
[2016-09-17 07:14] LABS: ALB/GLOB RATIO 1.1 (1.1-1.8); ALKALINE PHOSPHATASE 57 U/L (38-133); ALT/SGPT 31 U/L (7-56); AST/SGOT 34 U/L (15-59); BILIRUBIN,TOTAL 0.8 mg/dL (0.2-1.3); BLOOD UREA NITROGEN 18 mg/dL (7-21); CARBON DIOXIDE 28 mmol/L (21-33); CHLORIDE 101 mmol/L (98-107); GFR AFRICAN-AMERICAN > 60; GLUCOSE,RANDOM 119 mg/dL (70-110); PHOSPHOROUS 3.7 mg/dL (2.5-4.5); POTASSIUM 3.5 mmol/L (3.6-5.0); SODIUM 135 mmol/L (132-148); TOTAL PROTEIN 6.8 g/dL (5.8-8.3)
[2016-09-17] MEDS: Insulin Lispro (humaLOG) LOW Coverage SC SCH (08:14)
[2016-09-17] MEDS: Pantoprazole 20 mg EC Tab PO SCH (08:17)
--- NOTE | 2016-09-17 08:17 | PN ---
DATE: 09/16/2016 REASON FOR CONSULTATION AND FOLLOWUP: Ventricular tachycardia, coronary artery disease, CABG, admitt ed with possible pneumonia versus congestive heart failure. BRIEF CLINICAL HISTORY: A 61-year-old male with past medical history significant for hypertension, d iabetes, coronary artery disease, status post coronary artery bypass ____ followed by ____ ventri cular tachycardia ____ . The patient had a fever at home and a cough. Because of this, patient star ginette IV amiodarone loaded and then patient was taken to the lab animal technician to rule out an ischemic substrate and found to be only patent HARKINS. Rest of the ____ open, no need for intervention, severely decreas ed LV function, total circ collateralizing the RCA, but severely decreased LV function, ejection frac tion 15%-20%. The patient started on IV Primacor and diuretics. PHYSICAL EXAMINATION: VITAL SIGNS: Temperature afebrile, heart rate 60, blood pressure 124/72. HEENT: PERRLA. Extraocular muscles intact. NECK: Supple. No carotid bruits. No thyromegaly. CHEST: Clear to auscultation. HEART: S1, S2 regular. ABDOMEN: Soft. EXTREMITIES: Clubbing and cyanosis negative. LABORATORY DATA: Blood workup as follows: WBC ____, hemoglobin 11.5, hematocrit 34.3, platelet coun t 222. Chemistry shows sodium ____, potassium 3.7, chloride 100, carbon dioxide 28, anion gap of 13, BUN 18, creatinine 0.9. Total protein 6.7, albumin 3.4, albumin/globulin ratio 1. IMPRESSION: Decompensated congestive heart failure, acute on chronic systolic dysfunction, severely decreased left ventricular function, ejection fraction 15%-20%. Status post coronary artery bypass g raft in 1995, status post percutaneous transluminal coronary angioplasty, status post catheterization , patent left internal mammary artery to left anterior descending, ____ graft occluded, right coronar y artery total, circ codominant giving collateral to right coronary artery, status post automatic imp lantable cardioverter-defibrillator, cardiomyopathy, ischemic, status post a ventricular tachycardia 3 times, pneumonia. RECOMMENDATION: Discontinue Primacor now. Continue diuretics p.o. Continue DVT prophylaxis. Matti nue spironolactone, loading amiodarone, start 200 mg from tomorrow. Continue antibiotic as per ID an d continue aspirin. The patient is on Coreg from home CR. Continue digoxin, continue IV Lasix and mariaelena aparicio to p.o. Continue lisinopril. Monitor renal function. Upon discharge ____ will give new prescr iption. Possibly discharge home in a day or two. Thank you, Dr. Rosa, for providing us the opportunity in taking care of the patient. We will ch jorge magnesium and phosphorus level as well as ____ in the morning. Carley Nguyen MD cc: [id number] TT: 09/16/2016 20:01:23 Confirmation # [id number] Dictation # [id number] viri
[2016-09-17] MEDS: Magnesium Chloride 64 mg ER Tab PO SCH (09:08)
[2016-09-17 09:10] VITALS: BP 123/85; PULSE 65
[2016-09-17] MEDS: COREG 40 MG PO SCH (09:10)
--- NOTE | 2016-09-17 12:32 | DS ---
He is a 61-year-old male who was admitted with fever, chills, shortness of breath, congestiv e cardiomyopathy and multiple discharge of his defibrillators. The patient's defibrillator was inves tigated, it was most likely due to severely low ejection fraction between 15% and 20%. The patient was taken back to the veterinary laboratory technician by Dr. Nguyen. He has severe global hypokinesis and multipl e vessel disease. He has been stented in the past. The patient was treated for acute on chronic sys tolic heart and diastolic heart failure. He was started on amiodarone and Primacor in the hospital, he will be switched to Entresto and amiodarone at home. The patient also had spiking fevers and CT s howed multiple episodes of multifocal pneumonia. He was treated with IV antibiotics and bronchodilat ors. He did well. He has become afebrile. Vital signs are stable. He will be a possible candidate for heart transplant in the near future date. Regarding his low ejection fraction. The patient bozena l be followed as an outpatient. FINAL DISCHARGE DIAGNOSES: Severe ischemic congestive cardiomyopathy, acute on chronic systolic and diastolic combined heart failure, global hypokinesis, multifocal pneumonia and defibrillator discharg e. Praneeth Rosa MD cc: [id number] TT: 09/17/2016 12:31:23 jn
--- NOTE | 2016-09-17 13:37 | PN ---
DATE: 09/17/2016 REASON FOR CONSULTATION AND FOLLOWUP: Ventricular tachycardia, coronary artery disease, CABG, admitt ed with possible pneumonia and congestive heart failure. BRIEF CLINICAL HISTORY: This is a 61-year-old male with a past medical history significant for hyper tension, diabetes, coronary artery disease. Admitted with pneumonia, VT. The patient underwent card iac catheterization, revealed significantly decreased LV function, patent HARKINS to LAD, rest of the gr afts occluded. Medical treatment recommended. The patient currently being discharged, planned to fo elieser with Dr. Long in 1 week. The patient was started on IV Primacor, then loaded with 400 mg, now today from 200 mg daily. PHYSICAL EXAMINATION: VITAL SIGNS: Temperature afebrile, heart rate 65, blood pressure 123/85. HEENT: PERRLA. Extraocular muscles intact. NECK: Supple. No carotid bruits. No thyromegaly. CHEST: Clear to auscultation. HEART: S1, S2 regular. ABDOMEN: Soft. EXTREMITIES: Clubbing, cyanosis negative. BLOOD WORKUP: WBC 7.3, hemoglobin 12. , hematocrit 35.1, platelet count 235. Chemistry shows so dium 135, potassium 3.5, chloride 101, carbon dioxide 28, anion gap of 10, BUN 18, creatinine 0.8. IMPRESSION: Decompensated congestive heart failure, acute on chronic, systolic dysfunction, pneumoni a, ventricular tachycardia, coronary artery disease, coronary artery bypass graft, ischemic cardiomyo linus, status post automatic implantable cardioverter-defibrillator. RECOMMENDATION: Continue amiodarone 200 mg daily, continue Coreg, continue digoxin, continue KELSEA inh ibitors. We will start Entresto as outpatient. Prescription given for Entresto as well as amiodaron e. We will follow with you. Thank you, Dr. Rosa, for providing us the opportunity in taking care of the patient. We will fo elieser with you. Carley Nguyen MD cc: [id number] TT: 09/17/2016 13:37:12 Confirmation # [id number] Dictation # [id number]
== END 2016-09-17 12:30 | disposition home or self-care (01) | DRG 286 ==
LOC: ED 19:34 → ERH 22:05 → 2RSO 23:03 → CCU 09-13 17:34 → OBSVTOIN 09-14 09:00 → 2RNO 09-14 20:39
PROVIDERS: ADMIT Internal Medicine; ATTEND Internal Medicine
PROC: 4A023N7 Measurement of Cardiac Sampling and Pressure, Left Heart, Percutaneous Approach (ICD-10-PCS; principal; 2016-09-14)
PROC: B211YZZ Fluoroscopy of Multiple Coronary Arteries using Other Contrast (ICD-10-PCS; 2016-09-14)
PROC: B215YZZ Fluoroscopy of Left Heart using Other Contrast (ICD-10-PCS; 2016-09-14)
PROC: 4B02XTZ Measurement of Cardiac Defibrillator, External Approach (ICD-10-PCS; 2016-09-14)
PROC: 3E0F7GC Introduction of Other Therapeutic Substance into Respiratory Tract, Via Natural or Artificial Opening (ICD-10-PCS; 2016-09-16)
DX: I11.0 Hypertensive heart disease with heart failure (principal); I50.43 Acute on chronic combined systolic (congestive) and diastolic (congestive) heart failure; J18.9 Pneumonia, unspecified organism; I47.2 Ventricular tachycardia; I42.0 Dilated cardiomyopathy; I25.5 Ischemic cardiomyopathy; E11.51 Type 2 diabetes mellitus with diabetic peripheral angiopathy without gangrene; E78.5 Hyperlipidemia, unspecified; I25.10 Atherosclerotic heart disease of native coronary artery without angina pectoris; E78.00 Pure hypercholesterolemia, unspecified; R11.0 Nausea; I27.2 Other secondary pulmonary hypertension; I08.1 Rheumatic disorders of both mitral and tricuspid valves; E66.9 Obesity, unspecified; Z68.34 Body mass index [BMI] 34.0-34.9, adult; Z79.84 Long term (current) use of oral hypoglycemic drugs; Z87.891 Personal history of nicotine dependence; Z95.1 Presence of aortocoronary bypass graft; Z95.810 Presence of automatic (implantable) cardiac defibrillator; Z95.5 Presence of coronary angioplasty implant and graft; Z82.49 Family history of ischemic heart disease and other diseases of the circulatory system; Z83.3 Family history of diabetes mellitus; Z82.3 Family history of stroke

== ENCOUNTER 2016-09-19 08:47 | Observation (INO) | payer OTHER, MEDICARE ==
[2016-09-19 08:48] VITALS: PULSE 62
[2016-09-19 09:04] VITALS: BMI 32.0
--- NOTE | 2016-09-19 09:26 | ED PDOC ---
Arrival/HPI - General Chief Complaint: Chest Pain Time Seen by Provider: 09/19/16 08:53 Historian: Patient - History of Present Illness Narrative History of Present Illness (Text): 09/19/16 09:29 Randy Abdullahi is a 61 year old male, whose past medical history includes CAD , hypertension, and pacemaker/defibrillator, who presents to the Emergency department for evaluation of defibrillator after the alarm went off at 08:15 yesterday morning and this morning. No defibrillator did not fire. Patient states that his Arrhythmia Defibrillator alarm went off for about 15 seconds this morning at 08:15 and at the same time yesterday morning. Patient had no pain or symptoms when defibrillator alarm went off at rest. Patient called daycare assistant Dr. Kirk who told him to come here for evaluation of machine. Patient denies any other complaint at this time. PMD: Dr. Rosa Television Newscast Director: Dr. Nguyen Explosive Specialist: Dr. Rudi Kirk Implant date 04/30/14 Serial # [id number] Model# [id number] 04/30/14 Serial # [id number] Model# [id number] 04/30/14 Serial # [id number] Model# [id number] 01/12/15 Serial # [id number] Model# [id number] Time/Duration: 1-3 hours Symptom Course: Unchanged Activities at Onset: Rest Modifying Factors (Text): none Context: Home Past Medical History - Provider Review Nursing Documentation Reviewed: Yes - Cardiac Hx Cardiac Disorders: Yes Hx Hypertension: Yes Hx Pacemaker: Yes (defibrillator) - Pulmonary Hx Respiratory Disorders: No - Neurological Hx Neurological Disorder: No - HEENT Hx HEENT Disorder: No - Renal Hx Renal Disorder: No - Endocrine/Metabolic Hx Endocrine Disorders: Yes Hx Diabetes Mellitus Type 2: Yes - Hematological/Oncological Hx Blood Disorders: No - Integumentary Hx Dermatological Disorder: No - Musculoskeletal/Rheumatological Hx Musculoskeletal Disorders: No - Gastrointestinal Hx Gastrointestinal Disorders: No - Genitourinary/Gynecological Hx Genitourinary Disorders: No - Psychiatric Hx Psychophysiologic Disorder: No Hx Emotional Abuse: No Hx Physical Abuse: No Hx Substance Use: No - Surgical History Hx Coronary Artery Bypass Graft: Yes (in 1995) Other/Comment: stents in legs bilaterally - Anesthesia Hx Anesthesia Reactions: No Hx Malignant Hyperthermia: No - Suicidal Assessment Feels Threatened In Home Enviroment: No Family/Social History - Physician Review Nursing Documentation Reviewed: Yes Family/Social History: No Known Family HX Smoking Status: Former Smoker Hx Alcohol Use: No Hx Substance Use: No Allergies/Home Meds Allergies/Adverse Reactions: Allergies No Known Allergies Allergy (Verified 09/19/16 09:03) Home Medications: Home Meds Medication Instructions Recorded Confirmed Aspirin [Ecotrin] 81 mg PO DAILY 09/12/16 09/19/16 Carvedilol [Coreg Cr] 40 mg PO DAILY 09/12/16 09/19/16 Digoxin [Lanoxin] 250 mcg PO 1400 09/19/16 09/19/16 Insulin Aspart, Recombinant 0 units SC .WITHMEALS 09/19/16 09/19/16 [Novolog] Insulin Glargine,Hum.rec.anlog 15 units SC .PM\ 09/19/16 09/19/16 [Basaglar Kwikpen U-100] Pantoprazole [Protonix EC Tab] 20 mg PO DAILY 09/19/16 09/19/16 Sacubitril/Valsartan [Entresto 24 1 tab PO BID 09/19/16 09/19/16 mg-26 mg Tablet] Review of Systems - Review of Systems Constitutional: Other (Arrhythmia Defibrillator Alarm). absent: Fevers, Night Sweats Eyes: absent: Vision Changes ENT: absent: Hearing Changes Respiratory: absent: SOB, Cough Cardiovascular: absent: Chest Pain Gastrointestinal: absent: Abdominal Pain Genitourinary Male: absent: Urinary Output Changes Musculoskeletal: absent: Back Pain, Neck Pain Skin: absent: Rash Neurological: absent: Headache Endocrine: absent: Diaphoresis Hemo/Lymphatic: absent: Adenopathy Psychiatric: absent: Anxiety Physical Exam Vital Signs Reviewed: Yes Vital Signs Temp Pulse Resp BP Pulse Ox 09/19/16 11:11 60 107/59 L 09/19/16 11:04 60 16 107/59 L 100 09/19/16 08:48 97.7 F 61 19 133/67 100 Temperature: Afebrile Blood Pressure: Normal Pulse: Regular Respiratory Rate: Normal Appearance: Positive for: Well-Appearing, Non-Toxic, Comfortable Pain Distress: None Mental Status: Positive for: Alert and Oriented X 3 - Systems Exam Head: Present: Atraumatic, Normocephalic Pupils: Present: PERRL Extroacular Muscles: Present: EOMI Conjunctiva: Present: Normal Mouth: Present: Moist Mucous Membranes Neck: Present: Normal Range of Motion Respiratory/Chest: Present: Clear to Auscultation, Good Air Exchange. No: Respiratory Distress, Accessory Muscle Use Cardiovascular: Present: Regular Rate and Rhythm, Normal S1, S2. No: Murmurs Abdomen: Present: Normal Bowel Sounds. No: Tenderness, Distention, Peritoneal Signs Back: Present: Normal Inspection Upper Extremity: Present: Normal Inspection. No: Cyanosis, Edema Lower Extremity: Present: Normal Inspection. No: Edema Neurological: Present: GCS=15, CN II-XII Intact, Speech Normal Skin: Present: Warm, Dry, Normal Color. No: Rashes Psychiatric: Present: Alert, Oriented x 3, Normal Insight, Normal Concentration Medical Decision Making - Lab Interpretations I have reviewed the lab results: Yes Interpretation: All labs normal - RAD Interpretation Radiology Orders: 09/19/16 09:13 CHEST PORTABLE [RAD] Stat Commercial Agent: ED Physician - Medication Orders Current Medication Orders: Discontinued Medications Amiodarone HCl (Cordarone) 200 mg PO STAT STA Stop: 09/19/16 10:35 Last Admin: 09/19/16 11:11 Dose: 200 MG MAR Pulse and Blood Pressure Document 09/19/16 11:11 (Rec: 09/19/16 11:11 [id number]) Pulse Pulse Rate (60-90) 60 Blood Pressure Blood Pressure (100/60-150/90) 107/59 Spironolactone (Aldactone) 25 mg PO STAT STA Stop: 09/19/16 10:40 Last Admin: 09/19/16 11:11 Dose: 25 MG ED OBSERVATION Date of observation admission: 09/19/16 Time of observation admission: 09:20 - Observation admission statement Patient is being placed in observation because:: 09/19/16 09:20 Impression: 61 year old male complaining of evaluation of defibrillator machine after going off this morning and yesterday morning at 08:15. Differential Diagnosis included but are not limited to: arrhythmia defibrillator alarm - Goals of Observation Goals of observation are:: Plan: -- EKG -- Chest X-ray -- Labs -- Reassess and disposition Prior Visits: Notes and results from previous visits were reviewed. Patient last seen in the ED on 09/12/16 for a low-grade fever. Patient was admitted [facility] for further evaluation. - Progress Note Progress Note: EKG: Ordered, reviewed, and independently interpreted the EKG. Rate : 63 BPM Rhythm : Ventricular paced rhythm Interpretation : No ST-segment elevations or depressions, no T-wave inversions, normal intervals. Comparison : No change from previous on 09/12/16 09/19/16 10:31 Spoke to Lynn from [employer] on phone, she will come to emergency department to interrogate defibrillator. 09/19/16 10:20 Chest X-ray: Creator : RADHA ALEXANDER MD FINDINGS: LUNGS:The lungs are well inflated and clear. . PLEURA:No significant pleural effusion identified, no pneumothorax apparent. CARDIOVASCULAR: There is persistent moderate cardiomegaly. There is mild pulmonary venous congestion. Status post CABG. There is stable position of a left-sided dual lead transvenous permanent pacing device. OSSEOUS STRUCTURES:No significant abnormalities. VISUALIZED UPPER ABDOMEN:Normal. OTHER FINDINGS:None. IMPRESSION: Persistent moderate cardiomegaly and mild pulmonary venous congestion. No other significant interval change. 09/19/16 12:52 Lynn, from [employer] evaluated the device and states that there was no arrythmia or firing off of device for these two alarms. Last time it fired off was 09/14/15 while he was admitted here and discharged. She said it was a short run of vtach. Patient still with no symptoms. He was advised to follow up with his Primary Care doctor, optometrist/practice owner and electrophysiologgist. He was advised to return to the ED for any concerns. 09/19/16 12:[address] Kirk, daycare assistant, who agrees that patient can go home. He will f/u with patient next week. - Scribe Statement The provider has reviewed the documentation as recorded by the Carmen Otoole Provider Scribe Attestation: All medical record entries made by the Scribe were at my direction and personally dictated by me. I have reviewed the chart and agree that the record accurately reflects my personal performance of the history, physical exam, medical decision making, and the department course for this patient. I have also personally directed, reviewed, and agree with the discharge instructions and disposition. Disposition/Present on Arrival - Present on Arrival Any Indicators Present on Arrival: No History of DVT/PE: No History of Uncontrolled Diabetes: No Urinary Catheter: No History of Decub. Ulcer: No History Surgical Site Infection Following: None - Disposition Have Diagnosis and Disposition been Completed?: Yes Diagnosis: Visit for implantable defibrillator reprogramming or check Disposition: HOME/ ROUTINE Disposition Time: 09:20 Patient Plan: Discharge Patient Problems: Current Active Problems Problem Status Diagnosed Cardiac arrhythmia Acute Visit for implantable defibrillator reprogramming or check Acute Condition: IMPROVED
[2016-09-19 09:33] LABS: ADD MANUAL DIFF? NO
[2016-09-19 09:37] LABS: BASO # 0.03 [, K/mm3] (0.0-2.0); BASO % 0.3 % (0.0-3.0); EOS % 0.3 % (1.5-5.0); GRAN # 7.84 (1.4-6.5); GRAN % 73.2 % (50.0-68.0); HEMATOCRIT 37.5 % (42.0-52.0); LYMPH % 18.3 % (22.0-35.0); MEAN CELL VOLUME 75.8 fL (80.0-105.0); MEAN CORPUSCULAR HEMOGLOBIN 25.3 pg (25.0-35.0); MEAN CORPUSCULAR HGB CONC 33.3 g/dl (31.0-37.0); MEAN PLATELET VOLUME 9.7 fl (7.0-11.0); MONO # 0.8 (0.1-0.6); MONO % 7.9 % (1.0-6.0); PLATELET COUNT 306 [, 10^3/uL] (120.0-450.0); RED CELL DISTRIBUTION WIDTH 14.5 % (11.5-14.5); WHITE BLOOD COUNT 10.7 [, 10^3/ul] (4.5-11.0)
[2016-09-19 09:46] LABS: ALKALINE PHOSPHATASE 55 U/L (38-133); ALT/SGPT 31 U/L (7-56); AST/SGOT 27 U/L (15-59); BILIRUBIN,TOTAL 0.8 mg/dL (0.2-1.3); BLOOD UREA NITROGEN 20 mg/dL (7-21); CALCIUM 8.8 mg/dL (8.4-10.5); CARBON DIOXIDE 28 mmol/L (21-33); CHLORIDE 100 mmol/L (98-107); GFR AFRICAN-AMERICAN > 60; GLUCOSE,RANDOM 150 mg/dL (70-110); MAGNESIUM 1.9 mg/dL (1.7-2.2); POTASSIUM 3.7 mmol/L (3.6-5.0); SODIUM 139 mmol/L (132-148); TOTAL PROTEIN 6.9 g/dL (5.8-8.3)
[2016-09-19 09:57] LABS: TROPONIN I 0.02 ng/mL
--- NOTE | 2016-09-19 10:15 | RAD ---
HISTORY: firing of defibrillator COMPARISON: 09/15/2016 FINDINGS: LUNGS: The lungs are well inflated and clear. . PLEURA: No significant pleural effusion identified, no pneumothorax apparent. CARDIOVASCULAR: There is persistent moderate cardiomegaly. There is mild pulmonary venous congestion. Status post CABG. There is stable position of a left-sided dual lead transvenous permanent pacing device. OSSEOUS STRUCTURES: No significant abnormalities. VISUALIZED UPPER ABDOMEN: Normal. OTHER FINDINGS: None. IMPRESSION: Persistent moderate cardiomegaly and mild pulmonary venous congestion. No other significant interval change.
[2016-09-19 13:09] VITALS: BP 126/78; PULSE 77; RESP 18; TEMP 98.3; O2SAT 98
--- NOTE | 2016-09-19 14:44 | CARD ---
APPROVED REPORT EKG Measurement Heart [id number] <Conclusion> Atrial sensed, ventricular paced rhythm
== END 2016-09-19 12:50 | disposition home or self-care (01) ==
LOC: ED 08:47 → EROBSV 09:20
PROVIDERS: ADMIT Emergency Medicine; ATTEND Emergency Medicine
DX: Z45.02 Encounter for adjustment and management of automatic implantable cardiac defibrillator (principal); I25.10 Atherosclerotic heart disease of native coronary artery without angina pectoris; I10 Essential (primary) hypertension; E11.9 Type 2 diabetes mellitus without complications; Z87.891 Personal history of nicotine dependence
CPT/HCPCS: 71010; 80053; 82550; 82948; 83615; 83735; 84484; 85025; 93005; 99283; G0378

== ENCOUNTER 2017-03-08 16:24 | Observation (INO) | payer OTHER, MEDICARE ==
[2017-03-08 16:39] VITALS: BMI 35.9
[2017-03-08 16:59] LABS: BASO # 0.03 K/mm3 (0.0-2.0); BASO % 0.5 % (0.0-3.0); EOS # 0.1 (0.0-0.7); EOS % 0.9 % (1.5-5.0); GRAN # 3.96 (1.4-6.5); GRAN % 61.2 % (50.0-68.0); HEMATOCRIT 37.5 % (42.0-52.0); LYMPH # 1.9 (1.2-3.4); LYMPH % 28.7 % (22.0-35.0); MEAN CELL VOLUME 78.3 fl (80.0-105.0); MEAN CORPUSCULAR HEMOGLOBIN 25.5 pg (25.0-35.0); MEAN CORPUSCULAR HGB CONC 32.5 g/dl (31.0-37.0); MEAN PLATELET VOLUME 9.9 fl (7.0-11.0); MONO # 0.6 (0.1-0.6); MONO % 8.7 % (1.0-6.0); RED CELL DISTRIBUTION WIDTH 15.3 % (11.5-14.5); WHITE BLOOD COUNT 6.5 10^3/ul (4.5-11.0)
[2017-03-08 17:03] LABS: ALB/GLOB RATIO 1.3 (1.1-1.8); ALKALINE PHOSPHATASE 65 U/L (38-126); ALT/SGPT 37 U/L (7-56); AST/SGOT 20 U/L (17-59); BILIRUBIN,TOTAL 0.6 mg/dL (0.2-1.3); BLOOD UREA NITROGEN 14 mg/dL (7-21); CALCIUM 8.9 mg/dL (8.4-10.5); CARBON DIOXIDE 25 mmol/L (21-33); CHLORIDE 103 mmol/L (98-107); GFR AFRICAN-AMERICAN > 60; GLUCOSE,RANDOM 143 mg/dL (70-110); MAGNESIUM 1.9 mg/dL (1.7-2.2); POTASSIUM 3.7 mmol/L (3.6-5.0); SODIUM 137 mmol/L (132-148); TOTAL PROTEIN 6.8 g/dL (5.8-8.3)
--- NOTE | 2017-03-08 17:14 | ED PDOC ---
Arrival/HPI - General Chief Complaint: Medical Clearance Time Seen by Provider: 03/08/17 16:38 Historian: Patient - History of Present Illness Narrative History of Present Illness (Text): 03/08/17 17:09 A 61 year old male presents to the emergency department for evaluation. Patient reports he was concerned because his defibrillator went off this morning while watching television. Patient notes feeling dizzy for approximately 10 seconds but denies any complaints afterwards. Patient reports he was seen by his health policy analyst today for a scheduled routine check up and everything was normal. Patient continues to be asymptomatic. Patient denies any fever, chills, nausea, vomiting, abdominal pain, chest pain, shortness of breath or any other complaints. Time/Duration: Other (today) Symptom Course: Resolved Quality: Other Context: Home Past Medical History - Provider Review Nursing Documentation Reviewed: Yes - Infectious Disease Hx of Infectious Diseases: None - Cardiac Hx Cardiac Disorders: Yes Hx Hypertension: Yes Hx Pacemaker: Yes (defibrillator) - Pulmonary Hx Respiratory Disorders: No - Neurological Hx Neurological Disorder: No - HEENT Hx HEENT Disorder: No - Renal Hx Renal Disorder: No - Endocrine/Metabolic Hx Endocrine Disorders: Yes Hx Diabetes Mellitus Type 2: Yes - Hematological/Oncological Hx Blood Disorders: No - Integumentary Hx Dermatological Disorder: No - Musculoskeletal/Rheumatological Hx Musculoskeletal Disorders: No - Gastrointestinal Hx Gastrointestinal Disorders: No - Genitourinary/Gynecological Hx Genitourinary Disorders: No - Psychiatric Hx Psychophysiologic Disorder: No Hx Substance Use: No - Surgical History Hx Coronary Artery Bypass Graft: Yes (in 1995) Other/Comment: stents in legs bilaterally - Anesthesia Hx Anesthesia Reactions: No Hx Malignant Hyperthermia: No - Suicidal Assessment Feels Threatened In Home Enviroment: No Family/Social History - Physician Review Nursing Documentation Reviewed: Yes Family/Social History: No Known Family HX Smoking Status: Former Smoker Hx Alcohol Use: No Hx Substance Use: No Allergies/Home Meds Allergies/Adverse Reactions: Allergies No Known Allergies Allergy (Verified 09/19/16 09:03) Home Medications: Home Meds Medication Instructions Recorded Confirmed Aspirin [Ecotrin] 81 mg PO DAILY 09/12/16 03/08/17 Carvedilol [Coreg Cr] 40 mg PO DAILY 09/12/16 03/08/17 Digoxin [Lanoxin] 250 mcg PO 1400 09/19/16 03/08/17 Insulin Aspart, Recombinant 0 units SC .WITHMEALS 09/19/16 03/08/17 [Novolog] Pantoprazole [Protonix EC Tab] 20 mg PO DAILY 09/19/16 03/08/17 Insulin Degludec/Liraglutide 16 units SQ HS 03/08/17 03/08/17 [Xultophy 100 Unit-3.6MG/ml Pen] Sacubitril/Valsartan [Entresto 24 1 tab PO Q12 03/08/17 03/08/17 mg-26 mg] Review of Systems - Physician Review All systems were reviewed & negative as marked: Yes - Review of Systems Constitutional: Normal. absent: Fevers, Night Sweats Respiratory: absent: SOB Cardiovascular: absent: Chest Pain Gastrointestinal: absent: Abdominal Pain, Nausea, Vomiting Neurological: Dizziness (lasted 10 seconds and resolved) Physical Exam Vital Signs Reviewed: Yes Vital Signs Temp Pulse Resp BP Pulse Ox 03/08/17 18:25 98.2 F 61 17 119/61 100 03/08/17 16:25 98.3 F 65 18 127/71 98 Temperature: Afebrile Blood Pressure: Normal Pulse: Regular Respiratory Rate: Normal Appearance: Positive for: Well-Appearing, Non-Toxic, Comfortable Pain Distress: None Mental Status: Positive for: Alert and Oriented X 3 - Systems Exam Head: Present: Atraumatic, Normocephalic Pupils: Present: PERRL Extroacular Muscles: Present: EOMI Conjunctiva: Present: Normal Mouth: Present: Moist Mucous Membranes Neck: Present: Normal Range of Motion Respiratory/Chest: Present: Clear to Auscultation, Good Air Exchange, Other ( Well healed sternal scar). No: Respiratory Distress, Accessory Muscle Use Cardiovascular: Present: Regular Rate and Rhythm, Normal S1, S2. No: Murmurs Abdomen: Present: Normal Bowel Sounds. No: Tenderness, Distention, Peritoneal Signs Back: Present: Normal Inspection Upper Extremity: Present: Normal Inspection. No: Cyanosis, Edema Lower Extremity: Present: Normal Inspection, Other (Right lower extremity scar from CABG). No: Edema Neurological: Present: GCS=15, CN II-XII Intact, Speech Normal Skin: Present: Warm, Dry, Normal Color. No: Rashes Psychiatric: Present: Alert, Oriented x 3, Normal Insight, Normal Concentration Medical Decision Making ED Course and Treatment: 03/08/17 17:09 Impression: A 61 year old male presents for evaluation concerning his defibrillator. Patient is asymptomatic and denies any complaints at this time. Plan: -- Chest xray -- EKG -- Labs -- Urinalysis -- Reassess and disposition Progress Notes: EKG shows ventricular paced at 64 BPM. Interpreted by me. 03/08/17 17:27 Contacted [employer], which is the company of patients defibrillator. They state a new accounts banking representative will come interrogate the device. 03/08/17 17:[address] Cheung. There was no answer, a message was left. - Lab Interpretations Lab Results: 03/08/17 16:40 03/08/17 16:40 Lab Results 03/08/17 16:40: Sodium 137, Potassium 3.7, Chloride 103, Carbon Dioxide 25, Anion Gap 13, BUN 14, Creatinine 0.9, Est GFR ( Amer) > 60, Est GFR (Non- Af Amer) > 60, Random Glucose 143 H, Calcium 8.9, Magnesium 1.9, Total Bilirubin 0.6, AST 20, ALT 37, Alkaline Phosphatase 65, Lactate Dehydrogenase 399, Total Creatine Kinase 112, Troponin I < 0.01 D, NT-Pro-B Natriuret Pep 538 H, Total Protein 6.8, Albumin 3.9, Globulin 2.9, Albumin/Globulin Ratio 1.3 03/08/17 16:40: WBC 6.5 D, RBC 4.79, Hgb 12.2 L, Hct 37.5 L, MCV 78.3 L, MCH 25.5, MCHC 32.5, RDW 15.3 H, Plt Count 194, MPV 9.9, Gran % 61.2, Lymph % (Auto ) 28.7, [place] % (Auto) 8.7 H, Eos % (Auto) 0.9 L, Baso % (Auto) 0.5, Gran # 3.96 , Lymph # 1.9, [place] # 0.6, Eos # 0.1, Baso # 0.03 I have reviewed the lab results: Yes - RAD Interpretation Radiology Orders: 03/08/17 16:38 CHEST PORTABLE [RAD] Stat - Scribe Statement The provider has reviewed the documentation as recorded by the Scribe Krissy Ocasio Provider Scribe Attestation: All medical record entries made by the Scribe were at my direction and personally dictated by me. I have reviewed the chart and agree that the record accurately reflects my personal performance of the history, physical exam, medical decision making, and the department course for this patient. I have also personally directed, reviewed, and agree with the discharge instructions and disposition. Disposition/Present on Arrival - Present on Arrival Any Indicators Present on Arrival: No History of DVT/PE: No History of Uncontrolled Diabetes: No Urinary Catheter: No History of Decub. Ulcer: No History Surgical Site Infection Following: None - Disposition Have Diagnosis and Disposition been Completed?: Yes Diagnosis: Cardiac arrhythmia, Implantable cardioverter-defibrillator (ICD) discharge Disposition: HOSPITALIZED Disposition Time: 17:30 Condition: FAIR
[2017-03-08 17:15] LABS: TROPONIN I < 0.01 ng/mL
[2017-03-08 18:45] LABS: PH,URINE 5.5 (4.7-8.0); URINE BILIRUBIN NEGATIVE (NEGATIVE); URINE BLOOD NEGATIVE (NEGATIVE); URINE GLUCOSE (UA) 250 mg/dL (NEGATIVE); URINE KETONE NEGATIVE (NEGATIVE); URINE LEUKOCYTE ESTERASE NEGATIVE Leu/uL (NEGATIVE); URINE PROTEIN NEGATIVE mg/dL (<30 mg/dL)
[2017-03-08 18:59] LABS: URINE APPEARANCE CLEAR (CLEAR); URINE COLOR YELLOW (YELLOW)
[2017-03-08] MEDS ORDERED: Digoxin 250 mcg (0.25 mg) Tab PO STA (21:05)
[2017-03-08] MEDS ORDERED: Home Med 1 UNIT PO SCH (22:00)
[2017-03-08] MEDS ORDERED: Pneumococcal 23-Valent Vaccine IM ONE (22:44)
[2017-03-08 22:50] VITALS: PULSE 60
[2017-03-09 05:45] VITALS: RESP 18; TEMP 98.2; O2SAT 97
--- NOTE | 2017-03-09 08:32 | RAD ---
HISTORY: r/o infiltrate COMPARISON: 09/19/2016 FINDINGS: LUNGS: No active pulmonary disease. PLEURA: No significant pleural effusion identified, no pneumothorax apparent. CARDIOVASCULAR: AICD. No congestive change. Normal heart size. CABG. OSSEOUS STRUCTURES: No significant abnormalities. VISUALIZED UPPER ABDOMEN: Normal. OTHER FINDINGS: None. IMPRESSION: No active disease.
[2017-03-09] MEDS ORDERED: Non Formulary Medication (Carvedilol [Coreg Cr] 40 MG) PO SCH ×2 (10:00)
[2017-03-09] MEDS ORDERED: CARVEDILOL 20 MG PO SCH ×2 (10:00)
[2017-03-09] MEDS ORDERED: Pantoprazole 20 mg EC Tab PO SCH (10:00)
[2017-03-09] MEDS ORDERED: Digoxin 0.05 mg/mL Elixir 5mL PO SCH (10:00)
[2017-03-09] MEDS ORDERED: Potassium Chloride 20 mEq ER Tab PO ONE (10:10)
[2017-03-09] MEDS ORDERED: Insulin Reg-LOW-Coverage SC SCH (11:30)
--- NOTE | 2017-03-09 13:08 | CARD ---
APPROVED REPORT EKG Measurement Heart [id number] <Conclusion> Electronic ventricular pacemaker
[2017-03-09 13:54] VITALS: BP 109/59; PULSE 60
[2017-03-09] MEDS ORDERED: Digoxin 250 mcg (0.25 mg) Tab PO SCH (14:00)
--- NOTE | 2017-03-10 01:08 | HP ---
HISTORY OF PRESENT ILLNESS: Randy Abdullahi is a 61-year-old male with a history of chronic arrhythmia, CAD status post severely low ejection fractions as well as automatic implantable cardioverter-defibrillator. The patient had been stable when he became lightheaded and dizzy at work and his defibrillator discharged. The patient came to the ER, was found to be mildly hypotensive without any events of arrhythmia in the ER. The patient also is an insulin diabetic. He is on Entresto, Coreg, Spironolactone, Protonix, insulin, Xultophy, furosemide, digoxin, Lipitor, amiodarone and aspirin. LABORATORY DATA: The patient's laboratory data revealed normal CBC, electrolytes within normal limits. Blood sugars were fairly controlled at 116. BNP was mildly elevated at 538. Potassium was normal. Digoxin was 1.1. 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 PHYSICAL EXAMINATION: GENERAL: Shows a well-developed, well-nourished white male. HEART: Regular heart sounds. CHEST: Clear to auscultation and percussion. EXTREMITIES: No cyanosis, clubbing, or edema. NEUROLOGIC: Sensation is grossly intact. Praneeth Rosa MD
--- NOTE | 2017-03-10 04:29 | CON ---
DATE: 03/09/2017 CONSULT SERVICE: Cardiology. REASON FOR THE CONSULTATION: VT/VF, status post defibrillator went off, cardiac evaluation. BRIEF CLINICAL HISTORY: This is a 61-year-old male with past medical history significant for hypertension, diabetes, coronary artery disease, status post quadruple bypass in 1995 followed by coronary stent in the past many years ago, being followed by Dr. Conrad at [facility], history of AICD in 2004 and pacemaker generator change in 2014, who said yesterday he had in Dr. Kirk's office a check of the device and it was okay. Then, the patient went to work. While he was standing, suddenly defibrillator went off and fired, but the patient did not fall and decided to come here. Denies any chest pain, shortness of breath, any palpitation. The patient had interrogation done last night at 8 p.m. Interrogation revealed that the patient had VT degenerated into VF and appropriate shock delivered at 3:45 p.m. at 20 seconds, converting to normal sinus, 38 joules of current was delivered. The patient denies any chest pain, shortness of breath, any palpitation. PAST MEDICAL HISTORY: Significant for coronary artery disease, CABG, 4-vessel quadruple bypass in 1995, then the patient had stent with Dr. Conrad, ischemic cardiomyopathy, status post AICD in 2004, being followed by Dr. Kirk at [facility], recently pulse generator change in 2014, history of recent cardiac catheterization done on last admission when the patient was admitted with ventricular tachycardia and medical treatment recommended. CURRENT MEDICATIONS: The patient is taking spironolactone 25 mg daily, Entresto / one tablet daily, , digoxin 0.25 mg, carvedilol 40 mg, atorvastatin, amiodarone 200 mg daily. PREVIOUS CARDIAC WORKUP: The patient had a cardiac catheterization on 09/14/2016 when the patient admitted with VT/VF, as well as an LV injection was done. Cardiac catheterization revealed severe triple-vessel disease, ischemic cardiomyopathy, ejection fraction 15% to 20%, EDP was in the range of 30% to 35%, history of quadruple bypass CABG, only HARKINS to mid LAD patent, all other grafts occluded. Recommendation, medical treatment recommended, modification of lifestyle, modification of risk factors, add digoxin and amiodarone. The patient was started on Primacor for 24 to 48 hours with diuresis and later on, Entresto was started as an outpatient and plan was to continue KELSEA inhibitors, digoxin, and diuretics. The patient had echocardiography done on 09/14/2016 that revealed ejection fraction of 15% to 20%, trace aortic regurgitation, [id number] mitral regurgitation, moderate tricuspid regurgitation, RV systolic pressure 77, [id number] pulmonary hypertension, no pericardial effusion, dilated inferior vena cava, and pacemaker lead noted in RV. SOCIAL HISTORY: No history of alcohol abuse. No history of tobacco use. REVIEW OF SYSTEMS: A 14-point review of systems negative except as per HPI. The patient's AICD went off, but he did not fall, came to the emergency room. No chest pain. PHYSICAL EXAMINATION: As follows: GENERAL: Height of the patient is 5 feet 2 inches, weight of the patient 175 pounds, body mass index 32.1 kg/m2. VITAL SIGNS: Temperature afebrile, heart rate 62, blood pressure 105/57. HEENT: PERRLA. Extraocular muscles are intact. NECK: Supple. No carotid bruit. No thyromegaly. CHEST: Clear to auscultation. HEART: S1 and S2, regular. ABDOMEN: Soft. EXTREMITIES: Clubbing and cyanosis negative. LABORATORY DATA: Blood workup as follows: WBC 6.5, hemoglobin 12.2, hematocrit 37.5, platelet count 194. Chemistry shows sodium 137, potassium 3.7, chloride 103, carbon dioxide 25, anion gap of 13, BUN 14, creatinine 0.9. BNP 538. EKG showed V-paced rhythm but underlying normal sinus rate of 60. IMPRESSION: A 61-year-old male with past medical history significant for coronary artery disease, status post CABG, quadruple bypass. Last catheterization revealed only patent HARKINS to LAD. Post CABG, he had a PTCA. Ejection fraction is 15% to 20%. Last cardiac catheterization dated 09/14/2016 revealed [place] triple-vessel disease, only patent HARKINS to LAD. Medical treatment recommended and the patient was started on Entresto and digoxin and amiodarone was added. He was in usual state of health yesterday, had a pacemaker interrogation done, went to work, and his defibrillator went off. He had a severely decreased LV ejection fraction 15% to 20% by echo as well. A pacemaker interrogation done yesterday, defibrillator, that shows the patient had VT at 03:46 p.m. at 20 seconds and degenerated into ventricular fibrillation, appropriate therapy delivered, delivered, rate was 170, converted to normal sinus and remained hemodynamically stable. The patient did not fall. In view of severe decreased LV function and ischemic cardiomyopathy, this VT event or VF can be expected. If the patient would not have had the AICD, it may have led to sudden cardiac , but that saved the patient and appropriate therapy was delivered, but we will raise the threshold for this VT/VF and we will increase the amiodarone to 400 mg p.o. t.i.d. for 2 days followed by resuming 200 mg daily. Continue digoxin 0.25. Continue Coreg, but since the patient is on 40 mg and the blood pressure is at the lower side, we will decrease the Coreg to 20 mg daily, so we can push Entresto , which is the medication that increases the longevity and prevents sudden cardiac as well. Discussed at length with the patient and discussed with the patient's basmckj-eh-gar sitting next side, also discussed with Jany Fairchild, nurse practitioner, on the floor and possibly the patient is going to be discharged. She will discuss with Dr. Rosa. So far the electrolytes are within the normal limits. Potassium is 3.7, we will supplement today. Magnesium was 1.9. We will give 40 of K-Dur one dose before the patient goes. Okay to be discharged and follow up with Dr. Conrad upon discharge at [facility]. We will follow with you. Thank you Dr. Rosa for providing the opportunity in taking care of the patient, Bradly Padilla. Carley Nguyen MD
--- NOTE | 2017-03-10 07:46 | DS ---
HISTORY OF PRESENT ILLNESS: A 61-year-old male admitted to the hospital with pacemaker discharge, history of severe ischemic cardiomyopathy, CAD, insulin-dependent diabetes mellitus. The patient was admitted with a recent discharge of his pacemaker and hypotension and lightheadedness and dizziness. The patient was seen in consultation by Dr. Nguyen, his authorization nurse. The patient's medications were adjusted. He was ambulated. He had no further discharges. There is no further arrhythmia on his EKG. LABORATORY DATA: Remarkable. The patient was able to be discharged home to follow up as an outpatient with his prepress operator. FINAL DISCHARGE DIAGNOSES: Arrhythmia, hypotension, congestive cardiomyopathy, ischemic cardiomyopathy and insulin-dependent diabetes mellitus. Praneeth Rosa MD
== END 2017-03-09 14:53 | disposition home or self-care (01) ==
LOC: ED 16:24 → ERH 17:32 → 2RNO 20:49
PROVIDERS: ADMIT Internal Medicine; ATTEND Internal Medicine
DX: I49.9 Cardiac arrhythmia, unspecified (principal); I95.9 Hypotension, unspecified; I25.5 Ischemic cardiomyopathy; I42.0 Dilated cardiomyopathy; I25.10 Atherosclerotic heart disease of native coronary artery without angina pectoris; I10 Essential (primary) hypertension; E11.9 Type 2 diabetes mellitus without complications; Z79.4 Long term (current) use of insulin; Z95.810 Presence of automatic (implantable) cardiac defibrillator; Z95.5 Presence of coronary angioplasty implant and graft; Z95.1 Presence of aortocoronary bypass graft
CPT/HCPCS: 71010; 80053; 80162; 81003; 82550; 82948; 83615; 83735; 83880; 84484; 85025; 93005; 99283; G0378

== ENCOUNTER 2018-04-28 09:31 | Day surgery (SDC) | payer OTHER, MEDICARE ==
--- NOTE | 2018-04-28 03:20 | HP ---
DATE OF EXAM: REASON FOR ADMISSION: DUTCH cardioversion. BRIEF CLINICAL HISTORY: A 63-year-old male with past medial history significant for hypertension; diabetes; coronary artery disease, status post quadruple bypass in 1995, being followed by Dr. Concepción Long in our group; history of coronary artery bypass surgery; history of AICD in 2004, being followed Dr. Powell, recently generator changed in 2014, was seen here in office, found to be in AFib and on AICD interrogation. The patient is scheduled for DUTCH cardioversion. PAST MEDICAL HISTORY: Significant for coronary artery disease, status post VT; history of AICD in 2004; history of coronary artery bypass in 1995, four quadruple bypass; history of AICD in 2004; history of generator changed in [address] Powell; and history of recent catheterization done in the last admission when the patient presented with VFib ventricular tachycardia. RECENT CARDIAC WORKUP: As follows, the patient had a cardiac catheterization 09/14/2016 that revealed severe triple vessel disease, ischemic cardiomyopathy, ejection fraction 15% to 20%, EDP in the range of 30% to 35%, history of quadruple bypass CABG, only HARKINS to mid LAD patent all the graft occluded dated 09/14/2016 at that time the recommendation with aggressive medical treatment. We put the patient on Primacor for 24 to 48 hours, KELSEA inhibitor to Coreg diuretics was started and Entresto was suggested. The patient had recent again a stress test done dated 04/11/2018 that revealed abnormal myocardial study, fixed defect, no reversible ischemia, and ejection fraction 14%. The patient had echocardiography 04/11/2018 that revealed ejection fraction 20% to 25%, multiple wall motion was consistent with coronary artery disease, moderate tricuspid regurgitation and moderate mitral regurgitation, RV systolic pressure of 71 consistent with moderate pulmonary hypertension dated 04/11/2018. SOCIAL HISTORY: Denies smoking. Denies any history of alcohol abuse. CURRENT MEDICATIONS: The patient is taking at home spironolactone 25 mg daily, Entresto 24/ once a day, , insulin, Lasix, digoxin, Coreg, atorvastatin, aspirin, Eliquis 5 b.i.d. and amiodarone 200 mg daily. REVIEW OF SYSTEMS: As per HPI. PHYSICAL EXAMINATION: GENERAL: As follows; height of the patient 5 feet 2 inches, weight of the patient 182 pounds, and body mass index 30 kg/m2. VITAL SIGNS: Temperature afebrile, heart rate 60, and blood pressure 100/62. HEENT: PERRLA. Extraocular muscles intact. NECK: Supple. No carotid bruit or thyromegaly. CHEST: Clear to auscultation. HEART: S1 and S2 regular. ABDOMEN: Soft. EXTREMITIES: Clubbing and cyanosis negative. IMPRESSION AND PLAN: A 63-year-old male with a past medical history significant for coronary artery bypass, quadruple coronary artery bypass graft, bypass surgery in 1995, status post automatic implantable cardioverter-defibrillator in 2004, status post generator change in 2014, fixed defect, no reversible ischemia, and ejection fraction 15%. Recent echocardiogram, moderate mitral regurgitation, moderate tricuspid regurgitation, ejection fraction 20% to 25% recently. Automatic implantable cardioverter-defibrillator interrogation shows atrial fibrillation. The patient is scheduled for elective transesophageal echocardiography cardioversion. Further recommendation of cardioversion, the patient is already on Eliquis. We will follow with you. Thank you Dr. Rosa for providing us the opportunity in taking care of the patient, Randy Padilla. Further recommendation after DUTCH cardioversion. Carley Nguyen MD cc: MD Concepción Reyes MD
[2018-04-28 10:39] VITALS: BMI 32.9
[2018-04-28] MEDS ORDERED: Benzocaine/Butamben/Tetracai 14-2-2% TOP Spray TOP ONE (11:43)
[2018-04-28] MEDS ORDERED: Midazolam 2 MG/2 ML VIAL ONE (11:50)
[2018-04-28] MEDS ORDERED: Midazolam 2 MG/2 ML VIAL IV ONE ×3 (11:50→12:10)
[2018-04-28] MEDS ORDERED: Flumazenil 0.1 mg/ml Inj (5ml) IVP ONE (11:50)
[2018-04-28] MEDS ORDERED: Naloxone 0.4 mg/ml Inj (Adult) ONE (11:50)
[2018-04-28] MEDS ORDERED: Sodium Chloride 0.9% 1,000 ML IV SCH (12:30)
[2018-04-28 13:31] VITALS: RESP 18; TEMP 97.8
--- NOTE | 2018-04-28 13:43 | CARD ---
APPROVED REPORT Date of service: 04/28/2018 EXAM: Transesophageal echocardiogram with color flow Doppler and Synchronized Cardioversion. INDICATION Atrial Fibrillation 2D DIMENSIONS Left Atrium (2D)4.7 (1.6-4.0cm) Mitral Valve E/A ratio0.0 TDI E/Lateral E'0.0E/Medial E'0.0 Tricuspid Valve TR Peak [id number]/sRAP [id number] Peak Gr.51mmHg [id number] Reason For Test : Rule out Intracardiac Thrombus before Cardioversion PROCEDURE After obtaining informed consent, patient underwent transesophageal echo in the Echo Lab. Type of Sedation : Conscious Sedation Sedation was achieved with Versed and, Fentanyl 3 mg and 150 mcg intravenously. Transesophageal probe was inserted and advanced into esophagus without difficulty. Echo enhancement indication: R/O Septal defect. Echo enhancement agent administered: Agitated Saline The DUTCH was performed without complications. Synchronized Cardioversion attempted: Successful Synchronized Cardioversion acheived with 200 Joules after first attempt attempt(s). Rhythm following Synchronized Cardioversion: Normal Sinus Rhythm Throughout the procedure, the blood pressure, pulse oximetry, cardiac rhythm, and rate were monitored. The patient tolerated the procedure without adverse effects. Recovery from conscious sedation was uneventful and vital signs were stable. LEFT VENTRICLE The Left Ventricle is moderately dilated. There is normal left ventricular wall thickness. Left ventricle systolic function is severely impaired.EF-15-20% There is severe global hypokinesis of the left ventricle. Pt was in Afib couldnot be assessed No left ventricle thrombus noted on this study. There is no ventricular septal defect visualized. There is no left ventricular aneurysm. There is no mass noted in the left ventricle. RIGHT VENTRICLE The right ventricle is moderately dilated. There is normal right ventricular wall thickness. Systolic function is moderately reduced. ATRIA The left atrium is mildly dilated. The right atrium is moderately dilated. The interatrial septum is intact with no evidence for an atrial septal defect. AORTIC VALVE The aortic valve is mildly thickened. Trivial AR There is no aortic valvular stenosis. There is no aortic valvular vegetation. MITRAL VALVE The mitral valve leaflets are thickened. There is no evidence of mitral valve prolapse. There is no mitral valve stenosis. Mitral regurgitation is moderate. TRICUSPID VALVE The tricuspid valve leaflets display thickening. There is moderate tricuspid regurgitation.RVSP-61 mmof Hg. There is moderate pulmonary hypertension. There is no tricuspid valve prolapse or vegetation. There is no tricuspid valve stenosis. PULMONIC VALVE The pulmonary valve is normal in structure. Trivial PI There is no pulmonic valvular stenosis. GREAT VESSELS The aortic root is normal in size. The ascending aorta is normal in size. The pulmonary artery is normal. The IVC is normal in size and collapses >50% with inspiration. PERICARDIAL EFFUSION There is no pericardial effusion. There is no pleural effusion. <Conclusion> Foyr chamber dilatation c/w CMP, EF-15-20%. Moderate MR/TR RVSp- 61 mmof Hg. C/w Moderate pulmonary HTN.. Tivial AR/PI. Miold flat plaque in Descending aorta. Velocity in VANNA ,0.4 m/s. Intact intra septum by colorflow and Bubble study. 200 Joules Synchronized Cardioversion done, Pt. converted to NSR. Cc; Drs. Rosa/ Mercedes
[2018-04-28 15:19] VITALS: BP 97/59; PULSE 58; O2SAT 99
--- NOTE | 2018-04-28 18:22 | CARD ---
APPROVED REPORT Date of service: 04/28/2018 EKG Measurement Heart [id number] <Conclusion> AV sequential or dual chamber electronic pacemaker
--- NOTE | 2018-04-28 18:44 | CARD ---
APPROVED REPORT Date of service: 04/28/2018 EKG Measurement Heart [id number] <Conclusion> Electronic ventricular pacemaker
== END 2018-04-28 15:05 | disposition home or self-care (01) ==
LOC: CATH 09:31 → EDSTATUS 11:00 → CATH 15:05
PROVIDERS: ATTEND Internal Medicine Cardiovascular Disease
DX: I48.91 Unspecified atrial fibrillation (principal); I25.10 Atherosclerotic heart disease of native coronary artery without angina pectoris; E11.9 Type 2 diabetes mellitus without complications; I10 Essential (primary) hypertension; I27.20 Pulmonary hypertension, unspecified; I25.5 Ischemic cardiomyopathy; I08.1 Rheumatic disorders of both mitral and tricuspid valves; Z95.1 Presence of aortocoronary bypass graft; Z95.810 Presence of automatic (implantable) cardiac defibrillator
CPT/HCPCS: 92960; 93005; 93312; J2250; J3010; J7030